=== PATIENT | male | born 1975 | race Caucasian/White ===

== ENCOUNTER 2016-07-22 08:47 | Emergency (ER) | payer OTHER ==
[2016-07-22 08:54] VITALS: O2SAT 97
--- NOTE | 2016-07-22 09:12 | ERPHSYRPT ---
- History of Present Illness Source: patient Exam Limitations: clinical condition Patient Subjective Stated Complaint: PT STATES "I THINK I'M IN AFIB" STATES HE HAS BEEN. FEELING LIKE HE IS SOB AND "FEELING LIKE" HES IN AFIB X 2. 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 PT DENIES CHEST PAIN BUT STATES " ITS JUST UNCOMFORTABLE" Triage Nursing Assessment: PT ALERT WARM AND DRY RESP EASY NON LABORED. PT NS RYTHM ON THE MONITOR AT A RATE OF 80 Physician History: Patient with 2 day history of what he thinks is intermittent atrial fibrillation with intermittent palpitations which he has had a history of over the past several years off and on prescribing on no medications. He also has been somewhat short of breath last couple days with no cough congestion and wheezing productive cough. Patient has seen Dr. Crespo/ Luis over the years off and on. No history of pulmonary was more DVT. No fever or chills. Had to leave work yesterday because of his shortness of breath. No chest pain associated with this. No history of hypertension and does not know of any inherent cardiac disease.Pt is not SOB now,thinks he converted just before coming into ER. Timing/Duration: day(s) (2) Activities at Onset: other (intermittent as noted above) Location: other (None) Chest Pain Radiation: no radiation Severity of Pain-Max: none Severity of Pain-Current: none Modifying Factors: Improves With: other (patient did take 325 aspirin today although he say this helps him relax and helps to treat his atrial fibril) Aspirin Treatment Today: 325 mg x 1, provided at home Associated Symptoms: shortness of breath, malaise, No vomiting, No abdominal pain, No heartburn, No diaphoresis, No cough, No chills, No chest pain, No fever , No headaches, No loss of appetite, No rash, No syncope, No seizure, No weakness Prior Chest Pain/Cardiac Workup: no prior chest pain Allergies/Adverse Reactions: No Known Drug Allergies Allergy (Unverified 12/26/14 14:30) Home Medications: No Reportable Medications [No Reported Medications] 12/26/14 [History] Hx Tetanus, Diphtheria Vaccination/Date Given: Yes Hx Influenza Vaccination/Date Given: No Hx Pneumococcal Vaccination/Date Given: No Immunizations Up to Date: Yes - Review of Systems Constitutional: Malaise (associated with shortness of breath) Eyes: No Symptoms Ears, Nose, & Throat: No Symptoms Respiratory: Dyspnea, Dyspnea on Exertion (SCHMITT) Cardiac: Palpitations Abdominal/Gastrointestinal: No Symptoms Genitourinary Symptoms: No Symptoms Musculoskeletal: No Symptoms Skin: No Symptoms - Past Medical History Pertinent Past Medical History: Yes Neurological History: No Pertinent History ENT History: No Pertinent History Cardiac History: Arrhythmia, Other Respiratory History: Sleep Apnea Endocrine Medical History: No Pertinent History Musculoskeletal History: No Pertinent History GI Medical History: No Pertinent History History: No Pertinent History Psycho-Social History: No Pertinent History Male Reproductive Disorders: No Pertinent History Other Medical History: AFIB - Past Surgical History Past Surgical History: Yes Neuro Surgical History: No Pertinent History Cardiac: No Pertinent History Respiratory: No Pertinent History Gastrointestinal: Appendectomy Genitourinary: No Pertinent History Musculoskeletal: No Pertinent History Male Surgical History: No Pertinent History Other Surgical History: APPY - Social History Smoking Status: Current every day smoker How long have you smoked: 30 YEARS Exposure to second hand smoke: Yes Drug Use: none Patient Lives Alone: No - Nursing Vital Signs Temperature: 97.5 F Temperature Source: Oral Pulse Rate: 81 Respiratory Rate: 18 Pain Intensity: 1 - Physical Exam General Appearance: mild distress, alert, anxiety Eye Exam: PERRL/EOMI Ears, Nose, Throat Exam: normal ENT inspection Neck Exam: normal inspection, non-tender, supple, full range of motion Respiratory Exam: normal breath sounds, lungs clear, airway intact, No respiratory distress, No diminished breath sounds, No accessory muscle use, No prolonged expirations, No crackles/rales, No rhonchi, No wheezing, No stridor Cardiovascular Exam: regular rate/rhythm, normal heart sounds, normal peripheral pulses, capillary refill <2 sec Gastrointestinal/Abdomen Exam: soft, normal bowel sounds, No tenderness, No distention, No mass, No guarding, No ecchymosis, No pulsatile mass, No rebound, No hernia, No hepatomegaly, No organomegaly Rectal Exam: deferred Back Exam: normal inspection, normal range of motion, CVA tenderness Extremity Exam: normal inspection, normal range of motion, No calf tenderness, No deformities, No clint's sign, No inflammation, No joint swelling, No pedal edema, No swelling, No tenderness Neurologic Exam: alert, oriented x 3, 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, 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 Skin Exam: normal color, warm, dry Lymphatic Exam: No adenopathy SpO2 Interpretation: normal SpO2: 97 Oxygen Delivery: Room Air - Course Nursing assessment & vital signs reviewed: Yes EKG Interpreted by Me: RATE (77), Sinus Rhythm, Left [place] Deviation, NORMAL INTERVALS, NORMAL QRS, Non-specific ST Changes (II,III,aVL/F,V456 ), Other (NO COMPARISON AVAILABLE) - Radiology Exams Chest X-ray Interpretation: Reviewed by me, Discussed w/ radiologist, Negative Ordered Tests: Active Orders 24 hr Category Date Time Status Cota STAT Care 07/22/16 09:04 Active EKG-ER Only STAT Care 07/22/16 09:04 Active IV Insertion STAT Care 07/22/16 09:04 Active Pulse Oximetry (ED) STAT Care 07/22/16 09:04 Active CHEST 1 VIEW (PORTABLE) Stat Exams 07/22/16 09:05 Completed ARTERIAL BLOOD GASES Urgent Lab 07/22/16 09:46 Completed CBC W DIFF Stat Lab 07/22/16 09:00 Completed CMP Stat Lab 07/22/16 09:00 Completed D-DIMER QUANTITATION Stat Lab 07/22/16 09:30 Completed MAGNESIUM Stat Lab 07/22/16 09:00 Completed NT PRO BNP Stat Lab 07/22/16 09:00 Completed PROTIME WITH INR Stat Lab 07/22/16 09:00 Completed PTT Stat Lab 07/22/16 09:00 Completed TROPONIN Q3H Lab 07/22/16 09:00 Completed TROPONIN Q3H Lab 07/22/16 12:15 Ordered TROPONIN Q3H Lab 07/22/16 15:15 Ordered TROPONIN Q3H Lab 07/22/16 18:15 Ordered TROPONIN Q3H Lab 07/22/16 21:15 Ordered Lab/Rad Data: Laboratory Result Diagrams 07/22/16 09:00 07/22/16 09:00 Laboratory Results 07/22/16 07/22/16 07/22/16 Range/Units 09:46 09:30 09:00 WBC (4.0-10.5) K/mm3 RBC (4.1-5.6) M/mm3 Hgb (12.5-18.0) gm/dl Hct (42-50) % MCV (78-100) fl MCH (26-32) pg MCHC (32-36) g/dl RDW (11.5-14.0) % Plt Count (150-450) K/mm3 MPV (6-9.5) fl Gran % (36.0-66.0) % Lymphocytes % (24.0-44.0) % Monocytes % (0.0-12.0) % Eosinophils % (0.00-5.0) % Basophils % (0.0-0.4) % Basophils # (0-0.4) INR (0.8-3.0) PTT (24.1-36.1) SECONDS D-Dimer 0.291 (0.00-0.49) mg/L Puncture Site RIGHT RADIAL pCO2 43 (35-45) mmHg pO2 68 L (75-100) mmHg Base Excess 1.4 (-2.0-2.0) O2 Saturation 89.4 L (94-100) g/dF ABG pH 7.40 (7.35-7.45) ABG HCO3 26.6 (22-28) ABG O2 Sat (Measured) 96.6 (95-100) % Nathanael Test YES A-a Gradient 28 a/A Ratio 0.71 Hemoglobin 15.6 Carboxyhemoglobin 6.6 (0.0-6.9) % THgb Methemoglobin 1.0 L (1.4-1.5) % Temperature 37.0 C POC O2 Flow Rate 21 % Sodium (136-145) mEq/L Potassium 3.5 (3.5-5.1) mEq/L Chloride (98-107) mEq/L Carbon Dioxide (21-32) mEq/L Anion Gap (5-15) MEQ/L BUN (9-20) mg/dL Creatinine (0.55-1.30) mg/dl Estimated GFR ML/MIN Glucose (70-110) MG/DL Calcium (8.5-10.1) mg/dL Magnesium (1.8-2.4) mg/dL Total Bilirubin (0.2-1.0) mg/dL AST (15-37) U/L ALT (12-78) U/L Alkaline Phosphatase (46-116) U/L Troponin I < 0.017 (0.000-0.056) ng/ml NT-Pro-B Natriuret Pep (0-125) pg/ml Serum Total Protein (6.4-8.2) gm/dL Albumin (3.4-5.0) g/dL 07/22/16 07/22/16 07/22/16 Range/Units 09:00 09:00 09:00 WBC 4.4 (4.0-10.5) K/mm3 RBC 5.37 (4.1-5.6) M/mm3 Hgb 15.9 (12.5-18.0) gm/dl Hct 48.0 (42-50) % MCV 89.4 (78-100) fl MCH 29.6 (26-32) pg MCHC 33.1 (32-36) g/dl RDW 13.4 (11.5-14.0) % Plt Count 121 L (150-450) K/mm3 MPV 11.5 H (6-9.5) fl Gran % 49.7 (36.0-66.0) % Lymphocytes % 31.7 (24.0-44.0) % Monocytes % 15.4 H (0.0-12.0) % Eosinophils % 2.7 (0.00-5.0) % Basophils % 0.5 (0.0-0.4) % Basophils # 0.02 (0-0.4) INR 1.08 (0.8-3.0) PTT 40.2 H (24.1-36.1) SECONDS D-Dimer (0.00-0.49) mg/L Puncture Site pCO2 (35-45) mmHg pO2 (75-100) mmHg Base Excess (-2.0-2.0) O2 Saturation (94-100) g/dF ABG pH (7.35-7.45) ABG HCO3 (22-28) ABG O2 Sat (Measured) (95-100) % Nathanael Test A-a Gradient a/A Ratio Hemoglobin Carboxyhemoglobin (0.0-6.9) % THgb Methemoglobin (1.4-1.5) % Temperature C POC O2 Flow Rate % Sodium 144 (136-145) mEq/L Potassium 3.7 (3.5-5.1) mEq/L Chloride 107 (98-107) mEq/L Carbon Dioxide 27.4 (21-32) mEq/L Anion Gap 12.8 (5-15) MEQ/L BUN 13 (9-20) mg/dL Creatinine 1.05 (0.55-1.30) mg/dl Estimated GFR > 60 ML/MIN Glucose 94 (70-110) MG/DL Calcium 8.6 (8.5-10.1) mg/dL Magnesium 1.9 (1.8-2.4) mg/dL Total Bilirubin 0.6 (0.2-1.0) mg/dL AST 23 (15-37) U/L ALT 24 (12-78) U/L Alkaline Phosphatase 114 (46-116) U/L Troponin I (0.000-0.056) ng/ml NT-Pro-B Natriuret Pep < 5.0 (0-125) pg/ml Serum Total Protein 7.4 (6.4-8.2) gm/dL Albumin 3.6 (3.4-5.0) g/dL - Progress Progress: improved Air Movement: good Progress Note: 07/22/16 10:29Noted decreased O2 hemoglobin sat compared to O2 sat and PO2 of only 68. Patient works at [employer] next to [employer], had headache and generalized malaise yesterday which could be socially, monoxide poisoning as his carboxy was slightly elevated at 6.6 normal for smoker only at the 5.1 and he only smokes a half a pack a day. Case was discussed at length with he will recheck him tomorrow and patient will obtain carbon monoxide monitors and had them checked at work. See discharge diagnosis and instructions. Remainder of workup was noncontributory. Blood Culture(s) Obtained: No Antibiotics given: No Discussed with : Bryce Will see patient in: office (APPOINTMENT MADE 11:15 TOMORROW AT [facility]) - Departure Time of Disposition: 10:31 Departure Disposition: Home Clinical Impression: History of palpitations, History of atrial fibrillation, Accidental poisoning by carbon monoxide from other sources, Malaise Carbon monoxide poisoning syndrome Qualifiers: Encounter type: initial encounter Injury intent: accidental or unintentional Qualified Code(s): T58.91XA - Toxic effect of carbon monoxide from unspecified source, accidental (unintentional), initial encounter Condition: Stable Critical Care Time: No Referrals: MATT DAVIS MD [Primary Care Provider] - Instructions: Carbon Monoxide Poisoning, Shortness of Breath, Arrhythmias Additional Instructions: Rest with no strenuous activity next 48 hours. Check home and arrange for check of carbon monoxide levels at work. Please try to use her CPAP for sleep apnea. Follow-up tomorrow morning at 11:[address] Smith at [facility]. Please return to the emergency room for a significant concerns or issues such as continued palpitations shortness of breath chest pain etc.
--- NOTE | 2016-07-22 09:25 | XRAY ---
Indication: Chest pressure and short of breath. Atrial fibrillation. Comparison: None Portable apical lordotic chest demonstrates normal heart and lungs. Bony thorax intact with minimal degenerative changes.
[2016-07-22 09:29] LABS: BASOPHIL % 0.5 % (0.0-0.4); Eosinophil % 2.7 % (0.00-5.0); Granulocytes % 49.7 % (36.0-66.0); Lymphocytes % 31.7 % (24.0-44.0); Mean Cell Volume 89.4 fl (78-100); Mean Corpuscular Hemoglobin 29.6 pg (26-32); Mean Platelet Volume 11.5 fl (6-9.5); Monocytes % 15.4 % (0.0-12.0); Platelet Count 121 K/mm3 (150-450); Red Blood Count 5.37 M/mm3 (4.1-5.6); Red Cell Distribution Width 13.4 % (11.5-14.0); White Blood Count 4.4 K/mm3 (4.0-10.5)
[2016-07-22 09:49] LABS: INR 1.08 (0.8-3.0); PROTIME 12.1 SECONDS (8.83-12.87)
[2016-07-22 09:52] LABS: PTT 40.2 SECONDS (24.1-36.1)
[2016-07-22 09:56] LABS: ALBUMIN 3.6 g/dL (3.4-5.0); ALKALINE PHOSPHATASE 114 U/L (46-116); ANION GAP 12.8 MEQ/L (5-15); BILIRUBIN,TOTAL 0.6 mg/dL (0.2-1.0); BLOOD UREA NITROGEN 13 mg/dL (9-20); CHLORIDE 107 mEq/L (98-107); Carbon Dioxide 27.4 mEq/L (21-32); Glucose 94 MG/DL (70-110); MAGNESIUM 1.9 mg/dL (1.8-2.4); Potassium 3.7 mEq/L (3.5-5.1); SGOT/AST 23 U/L (15-37); SGPT/ALT 24 U/L (12-78); SODIUM 144 mEq/L (136-145); Total Protein 7.4 gm/dL (6.4-8.2)
[2016-07-22 09:56] LABS: A-aADO2 28; ARTERIAL BLD GAS O2 SATURATION 96.6 % (95-100); ARTERIAL BLOOD GAS BASE EXCESS 1.4 (-2.0-2.0); ARTERIAL BLOOD GAS FIO2 21 %; ARTERIAL BLOOD GAS PO2 68 mmHg (75-100)
[2016-07-22 09:57] LABS: ALLEN TEST OK? YES
[2016-07-22 10:28] VITALS: PULSE 81
[2016-07-22 11:17] VITALS: BP 129/70
== END 2016-07-22 11:17 | disposition home or self-care (01) ==
LOC: ED 08:47
DX: T58.91XA Toxic effect of carbon monoxide from unspecified source, accidental (unintentional), initial encounter (principal); R06.02 Shortness of breath; R00.2 Palpitations
CPT/HCPCS: 36000; 36415; 36600; 71010; 80053; 82375; 82803; 83735; 83880; 84484; 85025; 85379; 85610; 85730; 93005; 93041; 99283; 99284

== ENCOUNTER 2016-11-30 19:44 | Emergency (ER) | payer OTHER ==
[2016-11-30] MEDS ORDERED: TYLENOL 325 MG PO STA (19:58)
[2016-11-30] MEDS ORDERED: Sodium Chloride 0.9% 1000 ML 1,000 ML IV STA (20:09)
[2016-11-30] MEDS ORDERED: ROCEPHIN 2 Gm-D5w 50ML BAG** 2 G/50 ML IVPB IV ONE ×2 (20:11→20:23)
[2016-11-30] MEDS ORDERED: Sodium Chloride 0.9% 1000 ML 1,000 ML ONE (20:23)
[2016-11-30] MEDS ORDERED: TYLENOL 325 MG ONE (20:23)
[2016-11-30 20:38] LABS: BASOPHIL % 0.2 % (0.0-0.4); Eosinophil % 1.1 % (0.00-5.0); Granulocytes % 82.4 % (36.0-66.0); Lymphocytes % 10.6 % (24.0-44.0); Mean Corpuscular Hemoglobin 29.6 pg (26-32); Mean Platelet Volume 11.7 fl (6-9.5); Monocytes % 5.7 % (0.0-12.0); Platelet Count 135 K/mm3 (150-450); Red Blood Count 5.21 M/mm3 (4.1-5.6); Red Cell Distribution Width 13.2 % (11.5-14.0); White Blood Count 13.4 K/mm3 (4.0-10.5)
[2016-11-30 21:47] VITALS: PULSE 82
[2016-11-30] MEDS ORDERED: MOTRIN 600 MG PO ONE (21:47)
[2016-11-30] MEDS ORDERED: MOTRIN 400 MG PO ONE (21:53)
[2016-11-30] MEDS ORDERED: MOTRIN 400 MG ONE (21:55)
--- NOTE | 2016-11-30 21:57 | ERPHSYRPT ---
- History of Present Illness Time Seen by Provider: 11/30/16 19:55 Source: patient Exam Limitations: clinical condition Patient Subjective Stated Complaint: Pt sts since 1600 has had body aches, and sinus problems. Sts unsure if he has had fever but has been shaking and feels like he is "freezing". Sts took dayquil at 1600. Triage Nursing Assessment: Pt alert, oriented, answers all questions appropriately. Skin hot to touch, dry, flushed. Resps non-labored. SPO2 99% room air. Physician History: PATIENT COMPLAINS OF FEVER, CHILLS, GENERALIZED ACHES, SINUS PRESSURE AND A NONPRODUCTIVE COUGH TODAY. DENIES NAUSEA, EMESIS OR DIFFICULTY BREATHING. Timing/Duration: today Fever Severity: moderate Fever Therapy [place] MATE: none Associated Symptoms: cough, muscle aches International travel in last 2 weeks: No Allergies/Adverse Reactions: No Known Drug Allergies Allergy (Verified 11/30/16 20:01) Hx Tetanus, Diphtheria Vaccination/Date Given: Yes Hx Influenza Vaccination/Date Given: No Hx Pneumococcal Vaccination/Date Given: No Immunizations Up to Date: No - Review of Systems Constitutional: Fever, Chills Eyes: No Symptoms Ears, Nose, & Throat: No Symptoms Respiratory: Cough Neurological: No Dizziness, No Focal Weakness, No Sensory Changes - Past Medical History Pertinent Past Medical History: Yes Neurological History: No Pertinent History ENT History: No Pertinent History Cardiac History: Arrhythmia, Other Respiratory History: Sleep Apnea Endocrine Medical History: No Pertinent History Musculoskeletal History: No Pertinent History GI Medical History: No Pertinent History History: No Pertinent History Psycho-Social History: No Pertinent History Male Reproductive Disorders: No Pertinent History Other Medical History: AFIB - Past Surgical History Past Surgical History: Yes Neuro Surgical History: No Pertinent History Cardiac: No Pertinent History Respiratory: No Pertinent History Gastrointestinal: Appendectomy Genitourinary: No Pertinent History Musculoskeletal: No Pertinent History Male Surgical History: No Pertinent History Other Surgical History: APPY - Social History Smoking Status: Current every day smoker How long have you smoked: 30 years Exposure to second hand smoke: No Drug Use: none Patient Lives Alone: No - Nursing Vital Signs Nursing Vital Signs: Initial Vital Signs Temperature 102.2 F Temperature Source Oral Pulse Rate 82 Respiratory Rate 18 Blood Pressure [Right Arm] 120/58 - Physical Exam General Appearance: no apparent distress, alert Eye Exam: PERRL/EOMI ENT Exam: normal ENT inspection, No pharyngeal erythema, No tonsillar exudate Neck Exam: supple, full range of motion, No meningismus Respiratory Exam: normal breath sounds, lungs clear, no respiratory distress Cardiovascular/Chest Exam: normal heart sounds, regular rate/rhythm, No murmur, No edema Gastrointestinal/Abdominal Exam: soft, non tender, no distention Extremity Exam: non-tender, normal range of motion, normal inspection, normal capillary refill Neurologic Exam: alert, oriented x 3, cooperative, 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, normal mood/affect, sensation nml, No motor deficits Skin Exam: normal color, warm, dry, No rash SpO2 Interpretation: normal SpO2: 96 Oxygen Delivery: Room Air - Radiology Exams Chest X-ray Interpretation: Interpreted by me (LEFT BASILAR INFILTRATE) Ordered Tests: Active Orders 24 hr Category Date Time Status IV Insertion STAT Care 11/30/16 20:09 Active CHEST 2 VIEWS (PA AND LAT) Stat Exams 11/30/16 20:10 Taken BLOOD CULTURE Stat Lab 11/30/16 20:30 Received CBC W DIFF Stat Lab 11/30/16 20:25 Completed CULTURE, THROAT Stat Lab 11/30/16 20:00 Received [place] Screen Stat Lab 11/30/16 20:25 Completed STREP SCREEN-BETA A Stat Lab 11/30/16 20:00 Completed Medication Summary Discontinued Medications Generic Name Dose Route Start Last Admin Trade Name Freq PRN Reason Stop Dose Admin Acetaminophen 975 mg 11/30/16 19:58 11/30/16 20:24 Tylenol 325 Mg PO 11/30/16 19:59 975 mg STAT STA Administration Acetaminophen Confirm 11/30/16 20:23 Tylenol 325 Mg Administered 11/30/16 20:24 Dose 975 mg .ROUTE .STK-MED ONE Ceftriaxone Sodium/Dextrose 2 g in 50 mls @ 100 mls/hr 11/30/16 20:11 20:24 Rocephin 2 Gm-D5w 50ml Bag IV 11/30/16 20:40 100 mls/hr STAT ONE Administration Sodium Chloride 1,000 mls @ 999 mls/hr 11/30/16 20:09 11/30/16 20:25 Sodium Chloride 0.9% 1000 Ml IV 11/30/16 21:09 999 mls/hr .Q1H1M STA Administration Sodium Chloride Confirm 11/30/16 20:23 Sodium Chloride 0.9% 1000 Ml Administered 11/30/16 20:24 Dose 1,000 mls @ ud .ROUTE .STK-MED ONE Ceftriaxone Sodium/Dextrose Confirm 11/30/16 20:23 Rocephin 2 Gm-D5w 50ml Bag Administered 11/30/16 20:24 Dose 2 g in 50 mls @ ud IV .STK-MED ONE Ibuprofen 800 mg 11/30/16 21:47 Motrin 600 Mg PO 11/30/16 21:48 STAT ONE Lab/Rad Data: Laboratory Result Diagrams 11/30/16 20:25 Laboratory Results 11/30/16 11/30/16 11/30/16 Range/Units 20:25 20:25 20:00 WBC 13.4 H (4.0-10.5) K/mm3 RBC 5.21 (4.1-5.6) M/mm3 Hgb 15.4 (12.5-18.0) gm/dl Hct 46.9 (42-50) % MCV 90.0 (78-100) fl MCH 29.6 (26-32) pg MCHC 32.8 (32-36) g/dl RDW 13.2 (11.5-14.0) % Plt Count 135 L (150-450) K/mm3 MPV 11.7 H (6-9.5) fl Gran % 82.4 H (36.0-66.0) % Lymphocytes % 10.6 L (24.0-44.0) % Monocytes % 5.7 (0.0-12.0) % Eosinophils % 1.1 (0.00-5.0) % Basophils % 0.2 (0.0-0.4) % Basophils # 0.03 (0-0.4) Monoscreen NEGATIVE (Negative) Influenza Type A Ag NEGATIVE (NEGATIVE) Influenza Type B Ag NEGATIVE (NEGATIVE) RSV (PCR) NEGATIVE (Negative) Streptococcus Screen (Negative) 11/30/16 Range/Units 20:00 WBC (4.0-10.5) K/mm3 RBC (4.1-5.6) M/mm3 Hgb (12.5-18.0) gm/dl Hct (42-50) % MCV (78-100) fl MCH (26-32) pg MCHC (32-36) g/dl RDW (11.5-14.0) % Plt Count (150-450) K/mm3 MPV (6-9.5) fl Gran % (36.0-66.0) % Lymphocytes % (24.0-44.0) % Monocytes % (0.0-12.0) % Eosinophils % (0.00-5.0) % Basophils % (0.0-0.4) % Basophils # (0-0.4) Monoscreen (Negative) Influenza Type A Ag (NEGATIVE) Influenza Type B Ag (NEGATIVE) RSV (PCR) (Negative) Streptococcus Screen NEGATIVE (Negative) - Progress Progress Note: 11/30/16 21:53 PATIENT GIVEN IV NORMAL SALINE 1 LITER OVER 1 HOUR, ROCEPHIN 2GM IVPB, TYLENOL 975MG ORALLY Counseled pt/family regarding: lab results, diagnosis, need for follow-up, rad results - Departure Time of Disposition: 22:10 Departure Disposition: Home Clinical Impression: ACUTE BRONCHITIS Condition: Stable Critical Care Time: No Instructions: Fever (Symptom) -- Adult Additional Instructions: ANTIBIOTIC AUGMENTIN 875MG TWICE DAILY FOR 10 DAYS. ROBITUSSIN AC 1-2 TEASPOONS EVERY 4-6 HOURS FOR COUGHING NEEDED. TYLENOL OR MOTIRN NEEDED FOR FEVER. FOLLOWUP WITH YOUR FAMILY PHYSICIAN FOR EVALUATION IN 1 WEEK. Prescriptions: Guaifenesin/Codeine Phosphate [Robitussin AC Syrup] 5 ml PO Q4H PRN PRN #118 ml PRN Reason: Cough Amox Tr/[place]ass Clav. 875 mg [Augmentin 875-125 Tablet] 875 mg PO BID #20 tablet
[2016-11-30 22:22] VITALS: BP 124/68; O2SAT 98
--- NOTE | 2016-12-01 09:18 | XRAY ---
Indication: Nonproductive cough, fever, and flulike symptoms. Comparison: July 22, 2016. PA/lateral chest again demonstrates normal heart and lungs. Bony thorax intact.
== END 2016-11-30 22:20 | disposition home or self-care (01) ==
LOC: ED 19:44
DX: J20.9 Acute bronchitis, unspecified (principal); R50.9 Fever, unspecified; R05 Cough
CPT/HCPCS: 36000; 36415; 71020; 85025; 86308; 87040; 87070; 87430; 87631; 96360; 96361; 96365; 99284; J0696; A9270-GY

== ENCOUNTER 2018-05-31 08:44 | Emergency (ER) | payer OTHER ==
--- NOTE | 2018-05-31 09:14 | ERPHSYRPT ---
- History of Present Illness Time Seen by Provider: 05/31/18 09:00 Historian: patient Exam Limitations: no limitations Patient Subjective Stated Complaint: PT states "I have not been feeling well for the past few days and this morning I have belly pain, nausea, vomiting, I just feel horrible. I am not sure if it is something I ate or not." Triage Nursing Assessment: Pt alert and oriented X 3, skin pwd. Pt moaning and holding his abdomen. Pt in no apparent respiratory distress. Physician History: 42 y/o white male, with no hx of abd surgeries, presents with generalized, cramping abd pain first followed by n/v. sx began this am. no diarrhea. pt states he did eat afghan food last pm approx 13 to14 hours ago. never had before. pt has not generally fell well in last fiew days. pt denies cp and soa. Timing/Duration: today, sudden, worse Quality: cramping Abdominal Pain Onset Location: generalized abdomen Pain Radiation: no radiation Severity of Pain-Max: moderate Severity of Pain-Current: moderate Modifying Factors: Improves With: vomiting Associated Symptoms: nausea, vomiting, No chest pain, No diaphoresis, No diarrhea, No fever/chills, No fatigue, No headache, No heartburn, No loss of appetite, No rash, No shortness of breath, No syncope, No testicular pain, No weakness Previous symptoms: no prior history Allergies/Adverse Reactions: No Known Drug Allergies Allergy (Verified 11/30/16 20:01) Hx Tetanus, Diphtheria Vaccination/Date Given: Yes Hx Influenza Vaccination/Date Given: No Hx Pneumococcal Vaccination/Date Given: No Immunizations Up to Date: Yes - Review of Systems Constitutional: No Symptoms Eyes: No Symptoms Ears, Nose, & Throat: No Symptoms Respiratory: No Symptoms, No Cough, No Dyspnea, No Stridor, No Wheezing Cardiac: No Symptoms, No Chest Pain, No Palpitations, No Syncope Abdominal/Gastrointestinal: Abdominal Pain, Nausea, Vomiting, Appetite Changes, No Diarrhea Genitourinary Symptoms: No Symptoms, No Dysuria, No Frequency, No Hematuria Musculoskeletal: No Symptoms Skin: No Symptoms Neurological: No Symptoms Psychological: No Symptoms Endocrine: No Symptoms Hematologic/Lymphatic: No Symptoms Immunological/Allergic: No Symptoms All Other Systems: Reviewed and Negative - Past Medical History Pertinent Past Medical History: Yes Neurological History: No Pertinent History ENT History: No Pertinent History Cardiac History: Arrhythmia, Other Respiratory History: Sleep Apnea Endocrine Medical History: No Pertinent History Musculoskeletal History: No Pertinent History GI Medical History: No Pertinent History History: No Pertinent History Psycho-Social History: No Pertinent History Male Reproductive Disorders: No Pertinent History Other Medical History: AFIB - Past Surgical History Past Surgical History: Yes Neuro Surgical History: No Pertinent History Cardiac: No Pertinent History Respiratory: No Pertinent History Gastrointestinal: Appendectomy Genitourinary: No Pertinent History Musculoskeletal: No Pertinent History Male Surgical History: No Pertinent History Other Surgical History: APPY - Social History Smoking Status: Current every day smoker How long have you smoked: years Exposure to second hand smoke: Yes Drug Use: none Patient Lives Alone: No - Nursing Vital Signs Nursing Vital Signs: Initial Vital Signs Temperature 97.7 F 05/31/18 08:50 Pulse Rate 89 05/31/18 08:50 Respiratory Rate 16 05/31/18 08:50 Blood Pressure 136/91 05/31/18 08:50 O2 Sat by Pulse Oximetry 98 05/31/18 08:50 Pain Scale Pain Intensity 4 - Physical Exam General Appearance: mild distress, alert, anxiety Eye Exam: PERRL/EOMI, eyes nml inspection Ears, Nose, Throat Exam: normal ENT inspection Neck Exam: normal inspection, non-tender, supple, full range of motion Respiratory Exam: normal breath sounds, lungs clear, airway intact, No chest tenderness, No respiratory distress, No accessory muscle use, No rhonchi, No wheezing, No stridor Cardiovascular Exam: regular rate/rhythm, normal heart sounds, normal peripheral pulses Gastrointestinal/Abdomen Exam: soft, normal bowel sounds, tenderness (crampy generalized), No guarding, No rebound Rectal Exam: not done Back Exam: normal inspection, normal range of motion, No CVA tenderness, No vertebral tenderness Extremity Exam: normal inspection, normal range of motion, pelvis stable Neurologic Exam: alert, oriented x 3, cooperative, dashboard developer II-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 nml as tested Skin Exam: normal color, warm, dry Lymphatic Exam: No adenopathy SpO2 Interpretation: normal SpO2: 98 Oxygen Delivery: Room Air Ordered Tests: Active Orders 24 hr Category Date Time Status Clean Catch Urine Specimen STAT Care 05/31/18 09:15 Active IV Insertion STAT Care 05/31/18 09:15 Active NPO (ED) STAT Care 05/31/18 09:15 Active AMYLASE Stat Lab 05/31/18 09:29 Completed CBC W DIFF Stat Lab 05/31/18 09:29 Completed CMP Stat Lab 05/31/18 09:29 Completed LIPASE Stat Lab 05/31/18 09:29 Completed Lactic Acid Stat Lab 05/31/18 09:25 Completed UA W/RFX UR CULTURE Stat Lab 05/31/18 10:49 Completed Medication Summary Generic Name Dose Route Start Last Admin Trade Name Freq PRN Reason Stop Dose Admin Sodium Chloride 1,000 mls @ 999 mls/hr 05/31/18 11:01 05/31/18 11:06 Sodium Chloride 0.9% 1000 Ml IV 05/31/18 12:01 999 mls/hr .Q1H1M STA Administration Discontinued Medications Generic Name Dose Route Start Last Admin Trade Name Freq PRN Reason Stop Dose Admin Famotidine 20 mg 05/31/18 09:15 05/31/18 09:40 Pepcid 20 Mg Vial IV 05/31/18 09:16 20 mg STAT ONE Administration Famotidine Confirm 05/31/18 09:35 Pepcid 20 Mg Vial Administered 05/31/18 09:36 Dose 20 mg IV .STK-MED ONE Hydromorphone HCl 1 mg 05/31/18 09:15 05/31/18 09:40 Hydromorphone 1 Mg/Ml Ampule IV 05/31/18 09:16 1 mg STAT ONE Administration Hydromorphone HCl Confirm 05/31/18 09:35 Hydromorphone 1 Mg/Ml Ampule Administered 05/31/18 09:36 Dose 1 mg .ROUTE .STK-MED ONE Sodium Chloride 1,000 mls @ 999 mls/hr 05/31/18 09:15 05/31/18 09:40 Sodium Chloride 0.9% 1000 Ml IV 05/31/18 10:15 999 mls/hr .Q1H1M STA Administration Sodium Chloride Confirm 05/31/18 09:35 Sodium Chloride 0.9% 1000 Ml Administered 05/31/18 09:36 Dose 1,000 mls @ ud .ROUTE .STK-MED ONE Sodium Chloride Confirm 05/31/18 11:05 Sodium Chloride 0.9% 1000 Ml Administered 05/31/18 11:06 Dose 1,000 mls @ ud .ROUTE .STK-MED ONE Ondansetron HCl 4 mg 05/31/18 09:15 05/31/18 09:41 Zofran 4 Mg/2 Ml Vial IV 05/31/18 09:16 4 mg STAT ONE Administration Ondansetron HCl Confirm 05/31/18 09:35 Zofran 4 Mg/2 Ml Vial Administered 05/31/18 09:36 Dose 4 mg .ROUTE .STK-[facility] ONE Lab/Rad Data: Laboratory Result Diagrams 05/31/18 09:29 05/31/18 09:29 Laboratory Results 05/31/18 05/31/18 05/31/18 Range/Units 10:49 09:29 09:29 WBC 9.4 (4.0-10.5) K/mm3 RBC 5.79 H (4.1-5.6) M/mm3 Hgb 17.0 (12.5-18.0) gm/dl Hct 52.4 H (42-50) % MCV 90.5 (78-100) fl MCH 29.3 (26-32) pg MCHC 32.4 (32-36) g/dl RDW 13.6 (11.5-14.0) % Plt Count 140 L (150-450) K/mm3 MPV 11.9 H (6-9.5) fl Gran % 85.6 H (36.0-66.0) % Eos # (Auto) 0.10 (0-0.5) Absolute Lymphs (auto) 0.79 L (1.0-4.6) Absolute Monos (auto) 0.45 (0.0-1.3) Lymphocytes % 8.4 L (24.0-44.0) % Monocytes % 4.8 (0.0-12.0) % Eosinophils % 1.1 (0.00-5.0) % Basophils % 0.1 (0.0-0.4) % Absolute Granulocytes 8.04 H (1.4-6.9) Basophils # 0.01 (0-0.4) Sodium 145 (137-145) mmol/L Potassium 4.8 (3.5-5.1) mmol/L Chloride 106 (98-107) mmol/L Carbon Dioxide 29 (22-30) mmol/L Anion Gap 14.7 (5-15) MEQ/L BUN 18 (9-20) mg/dL Creatinine 0.97 (0.66-1.25) mg/dL Estimated GFR > 60.0 ML/MIN Glucose 110 H (74-106) mg/dL Lactic Acid (0.4-2.0) Calcium 9.4 (8.4-10.2) mg/dL Total Bilirubin 0.80 (0.2-1.3) mg/dL AST 27 (17-59) U/L ALT 32 (0-50) U/L Alkaline Phosphatase 114 (38-126) U/L Serum Total Protein 8.1 (6.3-8.2) g/dL Albumin 4.5 (3.5-5.0) g/dL Amylase 66 (30-110) U/L Lipase 78 (23-300) U/L Urine Color YELLOW (YELLOW) Urine Appearance CLEAR (CLEAR) Urine pH 5.0 (5-6) Ur Specific [place] 1.027 (1.005-1.025) Urine Protein NEGATIVE (Negative) Urine Ketones NEGATIVE (NEGATIVE) Urine Blood MODERATE (0-5) Jeronimo/ul Urine Nitrite NEGATIVE (NEGATIVE) Urine Bilirubin NEGATIVE (NEGATIVE) Urine Urobilinogen NEGATIVE (0-1) mg/dL Ur Leukocyte Esterase NEGATIVE (NEGATIVE) Urine WBC (Auto) NONE (0-5) /HPF Urine RBC (Auto) 0-2 (0-2) /HPF U Epithel Cells (Auto) RARE (FEW) /HPF Urine Bacteria (Auto) FEW (NEGATIVE) /HPF Other Casts (Auto) 2-5 (NEGATIVE) /LPF Urine Mucus (Auto) SLIGHT (NEGATIVE) /HPF Urine Culture Reflexed NO (NO) Urine Glucose NEGATIVE (NEGATIVE) mg/dL 05/31/18 Range/Units 09:25 WBC (4.0-10.5) K/mm3 RBC (4.1-5.6) M/mm3 Hgb (12.5-18.0) gm/dl Hct (42-50) % MCV (78-100) fl MCH (26-32) pg MCHC (32-36) g/dl RDW (11.5-14.0) % Plt Count (150-450) K/mm3 MPV (6-9.5) fl Gran % (36.0-66.0) % Eos # (Auto) (0-0.5) Absolute Lymphs (auto) (1.0-4.6) Absolute Monos (auto) (0.0-1.3) Lymphocytes % (24.0-44.0) % Monocytes % (0.0-12.0) % Eosinophils % (0.00-5.0) % Basophils % (0.0-0.4) % Absolute Granulocytes (1.4-6.9) Basophils # (0-0.4) Sodium (137-145) mmol/L Potassium (3.5-5.1) mmol/L Chloride (98-107) mmol/L Carbon Dioxide (22-30) mmol/L Anion Gap (5-15) MEQ/L BUN (9-20) mg/dL Creatinine (0.66-1.25) mg/dL Estimated GFR ML/MIN Glucose (74-106) mg/dL Lactic Acid 1.3 (0.4-2.0) Calcium (8.4-10.2) mg/dL Total Bilirubin (0.2-1.3) mg/dL AST (17-59) U/L ALT (0-50) U/L Alkaline Phosphatase (38-126) U/L Serum Total Protein (6.3-8.2) g/dL Albumin (3.5-5.0) g/dL Amylase (30-110) U/L Lipase (23-300) U/L Urine Color (YELLOW) Urine Appearance (CLEAR) Urine pH (5-6) Ur Specific [place] (1.005-1.025) Urine Protein (Negative) Urine Ketones (NEGATIVE) Urine Blood (0-5) Jeronimo/ul Urine Nitrite (NEGATIVE) Urine Bilirubin (NEGATIVE) Urine Urobilinogen (0-1) mg/dL Ur Leukocyte Esterase (NEGATIVE) Urine WBC (Auto) (0-5) /HPF Urine RBC (Auto) (0-2) /HPF U Epithel Cells (Auto) (FEW) /HPF Urine Bacteria (Auto) (NEGATIVE) /HPF Other Casts (Auto) (NEGATIVE) /LPF Urine Mucus (Auto) (NEGATIVE) /HPF Urine Culture Reflexed (NO) Urine Glucose (NEGATIVE) mg/dL - Progress Progress: improved, re-examined Progress Note: 05/31/18 11:25 pt states he is feeling better. pain and nausea improved but still a little nauseated. Counseled pt/family regarding: lab results, diagnosis, need for follow-up - Departure Time of Disposition: 11:25 Departure Disposition: Home Clinical Impression: Gastritis, Gastroenteritis Condition: Stable Critical Care Time: No Referrals: MATT DAVIS MD [Primary Care Provider] - Additional Instructions: drink plenty of fluids. avoid fatty, greasy spicy foods. follow up with primary doctor for further management Prescriptions: Ranitidine HCl [Zantac] 150 mg PO BID #10 tablet
[2018-05-31] MEDS ORDERED: Pepcid 20 MG VIAL IV ONE ×2 (09:15→09:35)
[2018-05-31] MEDS ORDERED: Zofran 4 MG/2 ML VIAL IV ONE (09:15)
[2018-05-31] MEDS ORDERED: Hydromorphone 1 mg/ml Ampule IV ONE (09:15)
[2018-05-31] MEDS ORDERED: Sodium Chloride 0.9% 1000 ML 1,000 ML IV STA ×2 (09:15→11:01)
[2018-05-31 09:35] LABS: BASOPHIL % 0.1 % (0.0-0.4); Basophil (Absolute #) 0.01 (0-0.4); Eosinophil % 1.1 % (0.00-5.0); Granulocyte Absolute (ANC) 8.04 (1.4-6.9); Granulocytes % 85.6 % (36.0-66.0); Hematocrit 52.4 % (42-50); Lymphocyte (Absolute #) 0.79 (1.0-4.6); Lymphocytes % 8.4 % (24.0-44.0); Mean Cell Volume 90.5 fl (78-100); Mean Corpuscular Hgb Concent. 32.4 g/dl (32-36); Mean Platelet Volume 11.9 fl (6-9.5); Monocyte (Absolute #) 0.45 (0.0-1.3); Monocytes % 4.8 % (0.0-12.0); Platelet Count 140 K/mm3 (150-450); Red Blood Count 5.79 M/mm3 (4.1-5.6); Red Cell Distribution Width 13.6 % (11.5-14.0); White Blood Count 9.4 K/mm3 (4.0-10.5)
[2018-05-31] MEDS ORDERED: Hydromorphone 1 mg/ml Ampule ONE (09:35)
[2018-05-31] MEDS ORDERED: Sodium Chloride 0.9% 1000 ML 1,000 ML ONE ×2 (09:35→11:05)
[2018-05-31] MEDS ORDERED: Zofran 4 MG/2 ML VIAL ONE (09:35)
[2018-05-31 09:36] LABS: Mean Corpuscular Hemoglobin 29.3 pg (26-32)
[2018-05-31 09:45] LABS: ALBUMIN 4.5 g/dL (3.5-5.0); ALKALINE PHOSPHATASE 114 U/L (38-126); AMYLASE 66 U/L (30-110); ANION GAP 14.7 MEQ/L (5-15); BLOOD UREA NITROGEN 18 mg/dL (9-20); CHLORIDE 106 mmol/L (98-107); Calcium 9.4 mg/dL (8.4-10.2); Carbon Dioxide 29 mmol/L (22-30); Creatinine 1 0.97 mg/dL (0.66-1.25); Glucose 110 mg/dL (74-106); LIPASE 78 U/L (23-300); Potassium 4.8 mmol/L (3.5-5.1); SGOT/AST 27 U/L (17-59); SGPT/ALT 32 U/L (0-50); SODIUM 145 mmol/L (137-145); Total Protein 8.1 g/dL (6.3-8.2)
[2018-05-31 11:05] LABS: Appearance CLEAR (CLEAR); Bilirubin NEGATIVE (NEGATIVE); Blood MODERATE Ery/ul (0-5); Glucose NEGATIVE (NEGATIVE); Ketones NEGATIVE (NEGATIVE); Leukocyte Esterase NEGATIVE (NEGATIVE); Nitrite NEGATIVE (NEGATIVE); Protein,Urine Dip NEGATIVE (Negative); Specific Gravity 1.027 (1.005-1.025); Urobilinogen NEGATIVE mg/dL (0-1)
[2018-05-31 11:29] VITALS: O2SAT 98
[2018-05-31 11:59] VITALS: BP 124/68; PULSE 68
== END 2018-05-31 12:12 | disposition home or self-care (01) ==
LOC: ED 08:44
DX: K29.70 Gastritis, unspecified, without bleeding (principal); K52.9 Noninfective gastroenteritis and colitis, unspecified
CPT/HCPCS: 36000; 36415; 80053; 81001; 82150; 83605; 83690; 85025; 96360; 96374; 96375; 99284; J1170; J2405

== ENCOUNTER 2020-11-18 12:59 | Observation (INO) | payer OTHER ==
[2020-11-18] MEDS ORDERED: TORAdol 30 mg Injection IV ONE (13:29)
[2020-11-18] MEDS ORDERED: BABY ASPIRIN 81 MG CHEW PO ONE (13:29)
[2020-11-18 13:40] LABS: Absolute Neutrophil Ct (ANC) 4.92 (1.4-6.9); BASOPHIL % 0.4 % (0.0-0.4); Basophil (Absolute #) 0.03 (0-0.4); Eosinophil % 1.6 % (0.00-5.0); Eosinophil (Absolute #) 0.13 (0-0.5); Hematocrit 45.9 % (42-50); Hemoglobin 14.7 gm/dl (12.5-18.0); Lymphocyte (Absolute #) 2.42 (1.0-4.6); Lymphocytes % 29.5 % (24.0-44.0); Mean Cell Volume 91.3 fl (78-100); Mean Corpuscular Hemoglobin 29.2 pg (26-32); Mean Platelet Volume 12.1 fl (7.5-11.0); Monocyte (Absolute #) 0.71 (0.0-1.3); Monocytes % 8.6 % (0.0-12.0); Neutrophil % 59.9 % (36.0-66.0); Platelet Count 140 K/mm3 (150-450); Red Blood Count 5.03 M/mm3 (4.1-5.6); Red Cell Distribution Width 13.6 % (11.5-14.0); White Blood Count 8.2 K/mm3 (4.0-10.5)
[2020-11-18] MEDS ORDERED: TORAdol 30 mg Injection ONE (13:45)
[2020-11-18] MEDS ORDERED: BABY ASPIRIN 81 MG CHEW ONE (13:45)
--- NOTE | 2020-11-18 13:50 | XRAY ---
Indication: Chest pain. Comparison: November 30, 2016. Portable chest continues to demonstrate normal heart and lungs. Bony thorax intact with minimal degenerative changes.
[2020-11-18 14:02] LABS: ALBUMIN 4.1 g/dL (3.5-5.0); ALKALINE PHOSPHATASE 111 U/L (38-126); ANION GAP 9.9 MEQ/L (5-15); BLOOD UREA NITROGEN 11 mg/dL (9-20); CHLORIDE 107 mmol/L (98-107); Calcium 8.9 mg/dL (8.4-10.2); Carbon Dioxide 27 mmol/L (22-30); Creatinine 1 1.07 mg/dL (0.66-1.25); EST GLOMERULAR FILTRATION RATE > 60.0 ML/MIN; Glucose 88 mg/dL (74-106); NT PRO BNP 128 pg/mL (0-450); Potassium 4.2 mmol/L (3.5-5.1); SGOT/AST 25 U/L (17-59); SGPT/ALT 26 U/L (0-50); SODIUM 140 mmol/L (137-145); Total Protein 6.9 g/dL (6.3-8.2)
[2020-11-18 14:05] LABS: INR 1.09 (0.8-3.0); PROTIME 12.3 SECONDS (8.83-12.87)
[2020-11-18 14:08] LABS: PTT 33.5 SECONDS (24.1-36.1)
--- NOTE | 2020-11-18 17:09 | ERPHSYRPT ---
- History of Present Illness Historian: patient Patient Subjective Stated Complaint: pt co left sided neck pain with shoulder pain sudden onset today, no injury, she states pain is worse with movement, he states on sat he has some dizzines and numbness of both arms,with fatigue nausea for six months Triage Nursing Assessment: pt alert, walked in, face mask in place, resp easy, skin w/d/p. he states he was at work when this started, has limited movement of left arm Physician History: 45 yo wm w L lateral chest pain/L shoulder pain/L sided neck pain which is worse w movement. Pt states that pain is sharp/9 on scale. He denies injury. Pain associated w dyspnea wo N/V/diaphoresis/cough/fever. He denies CAD and has had no similar pain in past. Pt has a remote h/o Afib/HTN/hyperlipidemia/smokes 1ppd. Timing/Duration: other (2hours) Activities at Onset: rest Quality: sharpness Location: other (L lateral chest/L shoulder/L neck) Chest Pain Radiation: neck (L shoulder) Severity of Pain-Max: severe Severity of Pain-Current: severe Modifying Factors: Improves With: movement Associated Symptoms: denies symptoms, shortness of breath Prior Chest Pain/Cardiac Workup: no prior chest pain Nitro Today/Relief: no nitro taken today Aspirin Treatment Today: no aspirin today Allergies/Adverse Reactions: lisinopril Allergy (Verified 11/18/20 13:12) nickel Allergy (Verified 11/18/20 20:23) Rash Home Medications: Atorvastatin Calcium [Lipitor] 10 mg PO DAILY 11/18/20 [History] Losartan Potassium 50 mg [Cozaar 50 MG] 50 mg PO DAILY 11/18/20 [History] Hx Tetanus, Diphtheria Vaccination/Date Given: Yes Hx Influenza Vaccination/Date Given: No Hx Pneumococcal Vaccination/Date Given: No Immunizations Up to Date: Yes Travel Risk - International Travel Have you traveled outside of the country in past 3 weeks: No - Coronavirus Screening Are you exhibiting any of the following symptoms?: Yes Symptoms: Headaches/Body Aches/Fatigue - Vaccine Status Have you recieved a Covid-19 vaccination: No - Review of Systems Constitutional: No Symptoms Eyes: No Symptoms Ears, Nose, & Throat: No Symptoms Respiratory: Dyspnea Cardiac: No Symptoms, Chest Pain Abdominal/Gastrointestinal: No Symptoms Genitourinary Symptoms: No Symptoms Musculoskeletal: No Symptoms Skin: No Symptoms Neurological: No Symptoms Psychological: No Symptoms Endocrine: No Symptoms Hematologic/Lymphatic: No Symptoms Immunological/Allergic: No Symptoms - Past Medical History Pertinent Past Medical History: Yes Neurological History: No Pertinent History ENT History: No Pertinent History Cardiac History: Arrhythmia, High Cholesterol, Hypertension, Other Respiratory History: Sleep Apnea Endocrine Medical History: No Pertinent History Musculoskeletal History: No Pertinent History GI Medical History: No Pertinent History History: No Pertinent History Psycho-Social History: No Pertinent History Male Reproductive Disorders: No Pertinent History Other Medical History: AFIB - Past Surgical History Past Surgical History: Yes Neuro Surgical History: No Pertinent History Cardiac: No Pertinent History Respiratory: No Pertinent History Gastrointestinal: Appendectomy Genitourinary: No Pertinent History Musculoskeletal: No Pertinent History Male Surgical History: No Pertinent History Other Surgical History: APPY - Social History Smoking Status: Current every day smoker How long have you smoked: years Exposure to second hand smoke: Yes Drug Use: none Patient Lives Alone: Yes Significant Family History: no pertinent family hx - Nursing Vital Signs Nursing Vital Signs: Initial Vital Signs Temperature 99.2 F 11/18/20 13:03 Pulse Rate 75 11/18/20 13:03 Respiratory Rate 18 11/18/20 13:03 Blood Pressure 143/80 11/18/20 13:03 O2 Sat by Pulse Oximetry 96 11/18/20 13:03 Pain Scale Pain Intensity 0 Mild hypertension - Physical Exam General Appearance: no apparent distress Eye Exam: PERRL/EOMI, eyes nml inspection Ears, Nose, Throat Exam: normal ENT inspection, TMs normal, pharynx normal, moist mucous membranes Neck Exam: normal inspection, non-tender, supple, full range of motion, No meningismus, No mass, No Brudzinski, No Kernig's Respiratory Exam: normal breath sounds, lungs clear, airway intact, No chest tenderness, No respiratory distress Cardiovascular Exam: regular rate/rhythm, normal heart sounds, No murmur Gastrointestinal/Abdomen Exam: soft, normal bowel sounds, No tenderness Back Exam: normal inspection, normal range of motion Extremity Exam: normal inspection, normal range of motion Neurologic Exam: alert, oriented x 3, cooperative, cigar inspector II-XII nml as tested, normal mood/affect, nml cerebellar function, nml station & gait, sensation nml, No motor deficits, No sensory deficit Skin Exam: normal color, warm, dry Lymphatic Exam: adenopathy SpO2 Interpretation: normal SpO2: 95 O2 Delivery: Room Air - Course EKG Interpreted by Me: RATE (NSR/R75/Borderline prolonged QTc/Nonspecific lateral T wave inversion/3-AVF Twave inversion/No acute ST changes) - Radiology Exams Chest X-ray Interpretation: Discussed w/ radiologist (Neg) Ordered Tests: Active Orders 24 hr Category Date Time Status EKG-ER Only STAT Care 11/18/20 13:27 Completed IV Insertion STAT Care 11/18/20 13:27 Completed Heart-Healthy Diet Diet 11/19/20 Breakfast Active CHEST 1 VIEW (PORTABLE) Stat Exams 11/18/20 13:28 Completed CBC W DIFF Stat Lab 11/18/20 13:10 Completed CMP Stat Lab 11/18/20 13:10 Completed D-DIMER QUANTITATIVE Stat Lab 11/18/20 13:45 Completed LIPID PROFILE AM.LAB Lab 11/19/20 04:00 Ordered NT PRO BNP Stat Lab 11/18/20 13:10 Completed PROTIME WITH INR Stat Lab 11/18/20 13:45 Completed PTT Stat Lab 11/18/20 13:45 Completed TROPONIN Q3H Lab 11/18/20 13:10 Completed TROPONIN Q3H Lab 11/18/20 16:17 Completed TROPONIN Q3H Lab 11/18/20 20:29 Completed TROPONIN Q3H Lab 11/18/20 22:30 Completed TROPONIN Q3H Lab 11/19/20 01:30 Ordered Transfer Order Routine Transfer 11/18/20 Completed Medication Summary Generic Name Dose Route Start Last Admin Trade Name Freq PRN Reason Stop Dose Admin Acetaminophen 650 mg 11/18/20 18:00 Tylenol 325 Mg PO 12/18/20 17:59 Q4H PRN PRN PAIN AND/OR FEVER Al Hydrox/Mg Hydrox/Simethicone 30 ml 11/18/20 18:00 Maalox Es 30 Ml Unit Dose PO 12/18/20 17:59 Q4H PRN PRN INDIGESTION Aspirin 325 mg 11/19/20 10:00 Ecotrin 325 Mg PO 12/19/20 09:59 DAILY PANCHO Magnesium Hydroxide 30 - 60 ml 11/18/20 18:00 Milk Of Magnesia 30 Ml PO 12/18/20 17:59 QDP PRN CONSTIPATION Nitroglycerin 0.4 mg 11/18/20 18:00 Nitrostat 0.4 Mg Tablet SL 12/18/20 17:59 .Q5MIN PRN CHEST PAIN Ondansetron HCl 4 mg 11/18/20 18:00 Zofran 4 Mg/2 Ml Vial IV 12/18/20 17:59 Q4H PRN PRN NAUSEA/VOMITING Senna/Docusate Sodium 2 udtab 11/18/20 18:00 Senokot-S Tablet PO 12/18/20 17:59 BID PRN PRN CONSTIPATION Discontinued Medications Generic Name Dose Route Start Last Admin Trade Name Freq PRN Reason Stop Dose Admin Aspirin 324 mg 11/18/20 13:29 11/18/20 13:46 Baby Aspirin 81 Mg Chew PO 11/18/20 13:30 324 mg STAT ONE Administration Aspirin Confirm 11/18/20 13:45 Baby Aspirin 81 Mg Chew Administered 11/18/20 13:46 Dose 324 mg .ROUTE .STK-MED ONE Ketorolac Tromethamine 30 mg 11/18/20 13:29 11/18/20 13:47 Toradol 30 Mg Injection IV 11/18/20 13:30 30 mg STAT ONE Administration Ketorolac Tromethamine Confirm 11/18/20 13:45 Toradol 30 Mg Injection Administered 11/18/20 13:46 Dose 30 mg .ROUTE .STK-MED ONE Lab/Rad Data: Laboratory Result Diagrams 11/18/20 13:10 11/18/20 13:10 Laboratory Results 11/18/20 11/18/20 11/18/20 Range/Units 18:22 16:17 13:45 WBC (4.0-10.5) K/mm3 RBC (4.1-5.6) M/mm3 Hgb (12.5-18.0) gm/dl Hct (42-50) % MCV (78-100) fl MCH (26-32) pg MCHC (32-36) g/dl RDW (11.5-14.0) % Plt Count (150-450) K/mm3 MPV (7.5-11.0) fl Gran % (36.0-66.0) % Eos # (Auto) (0-0.5) Absolute Lymphs (auto) (1.0-4.6) Absolute Monos (auto) (0.0-1.3) Lymphocytes % (24.0-44.0) % Monocytes % (0.0-12.0) % Eosinophils % (0.00-5.0) % Basophils % (0.0-0.4) % Absolute Granulocytes (1.4-6.9) Basophils # (0-0.4) PT (8.83-12.87) SECONDS INR (0.8-3.0) APTT (24.1-36.1) SECONDS D-Dimer 295 (215-500) ng/mL Sodium (137-145) mmol/L Potassium (3.5-5.1) mmol/L Chloride (98-107) mmol/L Carbon Dioxide (22-30) mmol/L Anion Gap (5-15) MEQ/L BUN (9-20) mg/dL Creatinine (0.66-1.25) mg/dL Estimated GFR ML/MIN Glucose (74-106) mg/dL Calcium (8.4-10.2) mg/dL Total Bilirubin (0.2-1.3) mg/dL AST (17-59) U/L ALT (0-50) U/L Alkaline Phosphatase (38-126) U/L Troponin I < 0.012 (0.000-0.034) ng/mL NT-Pro-B Natriuret Pep (0-450) pg/mL Serum Total Protein (6.3-8.2) g/dL Albumin (3.5-5.0) g/dL SARS-CoV-2 (PCR) NEGATIVE (NEGATIVE) 11/18/20 11/18/20 11/18/20 Range/Units 13:45 13:10 13:10 WBC (4.0-10.5) K/mm3 RBC (4.1-5.6) M/mm3 Hgb (12.5-18.0) gm/dl Hct (42-50) % MCV (78-100) fl MCH (26-32) pg MCHC (32-36) g/dl RDW (11.5-14.0) % Plt Count (150-450) K/mm3 MPV (7.5-11.0) fl Gran % (36.0-66.0) % Eos # (Auto) (0-0.5) Absolute Lymphs (auto) (1.0-4.6) Absolute Monos (auto) (0.0-1.3) Lymphocytes % (24.0-44.0) % Monocytes % (0.0-12.0) % Eosinophils % (0.00-5.0) % Basophils % (0.0-0.4) % Absolute Granulocytes (1.4-6.9) Basophils # (0-0.4) PT 12.3 (8.83-12.87) SECONDS INR 1.09 (0.8-3.0) APTT 33.5 (24.1-36.1) SECONDS D-Dimer (215-500) ng/mL Sodium 140 (137-145) mmol/L Potassium 4.2 (3.5-5.1) mmol/L Chloride 107 (98-107) mmol/L Carbon Dioxide 27 (22-30) mmol/L Anion Gap 9.9 (5-15) MEQ/L BUN 11 (9-20) mg/dL Creatinine 1.07 (0.66-1.25) mg/dL Estimated GFR > 60.0 ML/MIN Glucose 88 (74-106) mg/dL Calcium 8.9 (8.4-10.2) mg/dL Total Bilirubin 0.40 (0.2-1.3) mg/dL AST 25 (17-59) U/L ALT 26 (0-50) U/L Alkaline Phosphatase 111 (38-126) U/L Troponin I < 0.012 (0.000-0.034) ng/mL NT-Pro-B Natriuret Pep 128 (0-450) pg/mL Serum Total Protein 6.9 (6.3-8.2) g/dL Albumin 4.1 (3.5-5.0) g/dL SARS-CoV-2 (PCR) (NEGATIVE) 11/18/20 Range/Units 13:10 WBC 8.2 (4.0-10.5) K/mm3 RBC 5.03 (4.1-5.6) M/mm3 Hgb 14.7 (12.5-18.0) gm/dl Hct 45.9 (42-50) % MCV 91.3 (78-100) fl MCH 29.2 (26-32) pg MCHC 32.0 (32-36) g/dl RDW 13.6 (11.5-14.0) % Plt Count 140 L (150-450) K/mm3 MPV 12.1 H (7.5-11.0) fl Gran % 59.9 (36.0-66.0) % Eos # (Auto) 0.13 (0-0.5) Absolute Lymphs (auto) 2.42 (1.0-4.6) Absolute Monos (auto) 0.71 (0.0-1.3) Lymphocytes % 29.5 (24.0-44.0) % Monocytes % 8.6 (0.0-12.0) % Eosinophils % 1.6 (0.00-5.0) % Basophils % 0.4 (0.0-0.4) % Absolute Granulocytes 4.92 (1.4-6.9) Basophils # 0.03 (0-0.4) PT (8.83-12.87) SECONDS INR (0.8-3.0) APTT (24.1-36.1) SECONDS D-Dimer (215-500) ng/mL Sodium (137-145) mmol/L Potassium (3.5-5.1) mmol/L Chloride (98-107) mmol/L Carbon Dioxide (22-30) mmol/L Anion Gap (5-15) MEQ/L BUN (9-20) mg/dL Creatinine (0.66-1.25) mg/dL Estimated GFR ML/MIN Glucose (74-106) mg/dL Calcium (8.4-10.2) mg/dL Total Bilirubin (0.2-1.3) mg/dL AST (17-59) U/L ALT (0-50) U/L Alkaline Phosphatase (38-126) U/L Troponin I (0.000-0.034) ng/mL NT-Pro-B Natriuret Pep (0-450) pg/mL Serum Total Protein (6.3-8.2) g/dL Albumin (3.5-5.0) g/dL SARS-CoV-2 (PCR) (NEGATIVE) - Progress Progress: improved Progress Note: 11/18/20 17:[address] Hester due to flipped T-waves in inferior leads/V5-V6 and risk factors of HTN/Hyperlipidemia/tobacco abuse Pain improved w 30mg IV toradol/324 asa po Discussed with : Smith Counseled pt/family regarding: lab results, diagnosis, rad results - Departure Departure Disposition: Observation Clinical Impression: Chest pain Condition: Stable Critical Care Time: No
[2020-11-18] MEDS ORDERED: MAALOX ES 30 ML UNIT DOSE PO PRN (18:00)
[2020-11-18] MEDS ORDERED: Nitrostat 0.4 MG Tablet SL PRN (18:00)
[2020-11-18] MEDS ORDERED: Zofran 4 MG/2 ML VIAL IV PRN (18:00)
[2020-11-18] MEDS ORDERED: Senokot-S Tablet PO PRN (18:00)
[2020-11-18] MEDS ORDERED: TYLENOL 325 MG PO PRN (18:00)
[2020-11-18] MEDS ORDERED: MILK OF MAGNESIA 30 ML PO PRN (18:00)
[2020-11-19 06:10] LABS: Risk Ratio 6.7
[2020-11-19] MEDS ORDERED: Ecotrin 325 MG PO SCH (10:00)
[2020-11-19] MEDS ORDERED: Cozaar 50 MG PO SCH (10:00)
[2020-11-19] MEDS ORDERED: NON-FORMULARY ITEM (Atorvastatin Calcium [Lipitor] 10 MG) PO SCH (10:00)
--- NOTE | 2020-11-19 11:51 | SSS ---
DISCHARGE DIAGNOSIS: LEFT-SIDED NECK PAIN. HOSPITAL COURSE: The patient is a 45 year-old white male patient who reports he was at work when he had sudden onset of pain in the left side of his neck up to the back of his head on the left side and down his left shoulder. He reports he has been having problems with numbness and tingling in his hands which have been more actually in his right hand. He is right hand dominant. The patient reported the last week he was very weak which has resolved somewhat but had no other symptoms otherwise. The patient reports that it is excruciatingly painful to move his left arm. Neck position did not seem to make a difference. The patient received 30 mg of Toradol in the emergency room after which the patient's pain has resolved. He has not had a recurrence since that time. PAST MEDICAL/SURGICAL HISTORY: The patient's past medical history is essentially remarkable for hypertension and hyperlipidemia. He has not been taking his blood pressure medicine as his blood pressure got low on it and he stopped the medications on his own. SOCIAL HISTORY: The patient otherwise smokes one pack per day. PHYSICAL EXAMINATION: His vital signs on admission were noted to be temperature 99.2F, pulse 75, respiratory rate 18, blood pressure 143/80. O2 saturation 96% on room air. HEENT: Normocephalic, atraumatic. Pupils equal round reactive to light. Extraocular movements are intact. Oropharynx is pink and moist. NECK: Supple without lymphadenopathy, thyromegaly or JVD. CHEST: Clear to auscultation. HEART: Regular rate and rhythm. ABDOMEN: Soft. No palpable masses. EXTREMITIES: Without cyanosis, clubbing or edema. NEUROLOGIC: The patient is alert and oriented x3. No focal deficits noted. LAB DATA AND TESTS: The patient's evaluations in the emergency room and observation had several troponins that have all been less than 1.012. He had a lipid panel with HDL 24, LDL 116. His triglycerides were 243. His COVID test was negative. INR was 1.09. D-dimer was 295. Metabolic panel was entirely normal. BUN 11, creatinine 1.08. Sugar 88. CBC was normal as well with hemoglobin 14.7, white count 8.2, PLT count 140,000. He had a chest x-ray which was normal. His EKG showed slight T-wave inversion in the lateral leads on one EKG. He is sinus bradycardia with a rate of 46. ASSESSMENT: A patient with left-sided neck pain essentially more concerning for neuropathy. We will see if we can get a MRI of the neck or at least a CT scan of the neck before he goes home. He was given a prescription for Toradol to use 10 mg every six hours as needed for no more than five days and to follow up in the office in one week.
[2020-11-19 11:53] VITALS: BP 149/79; PULSE 54; O2SAT 100
--- NOTE | 2020-11-19 14:06 | XRAY ---
Indication: Neck pain. No known injury. Multiple contiguous axial images obtained through the cervical spine. Sagittal and coronal reformatted images obtained. Comparison: None Axial images negative for acute fracture, suspicious bony lesions, or spinal canal stenosis. Minimal C4-C7 degenerative endplate spurring. Sagittal and coronal reformatted images demonstrates minimal lordotic reversal, positional versus paraspinal spasm. Vertebral body heights/disc spaces maintained. No acute compression fracture, subluxation, or jumped facet. Normal appearing craniocervical junction. Visualized noncontrasted soft tissues including base of the brain unremarkable. Minimal biapical subpleural cystic changes. Impression: 1. Cervical lordotic reversal, positional versus paraspinal spasm. 2. Minimal C4-C7 degenerative changes. MRI may yield further information if clinically warranted.
[2020-11-19] MEDS ORDERED: Zocor 10MG PO SCH (22:00)
== END 2020-11-19 14:28 | disposition home or self-care (01) ==
LOC: ED 12:59 → MED SURG 20:04
PROVIDERS: ADMIT Family Medicine; ATTEND Family Medicine
DX: M54.2 Cervicalgia (principal); R07.9 Chest pain, unspecified; I10 Essential (primary) hypertension; E78.5 Hyperlipidemia, unspecified; F17.200 Nicotine dependence, unspecified, uncomplicated; Z79.899 Other long term (current) drug therapy; R20.0 Anesthesia of skin; Z20.828 Contact with and (suspected) exposure to other viral communicable diseases
CPT/HCPCS: 36000; 36415; 71045; 72125; 80053; 80061; 83721; 83880; 84484; 85025; 85379; 85610; 85730; 93005; 93268; 94760; 96374; 99284; G0378; U0003; J1885; A9270-GY

== ENCOUNTER 2020-12-01 01:20 | Emergency (ER) | payer OTHER ==
[2020-12-01] MEDS ORDERED: Pepcid 20 MG VIAL IV ONE ×2 (01:35→01:36)
[2020-12-01] MEDS ORDERED: BENADRYL 50 MG/ML ONE (01:35)
[2020-12-01] MEDS ORDERED: solu-MEDROL 125 MG ONE (01:36)
[2020-12-01] MEDS ORDERED: solu-MEDROL 125 MG IV ONE (01:36)
[2020-12-01] MEDS ORDERED: BENADRYL 50 MG/ML IV ONE (01:36)
--- NOTE | 2020-12-01 01:43 | ERPHSYRPT ---
- History of Present Illness Time Seen by Provider: 12/01/20 01:36 Patient Subjective Stated Complaint: generalized itching and rash to bilat legs Triage Nursing Assessment: pt alert and oriented, answers questions approp. pt ambulatory with steady gait noted. respirations nonlabored with lungs cta. pt reports no difficulty breathing or swallowing. red raised rash to bilat legs. redness noted to bilat feet and ankles. Physician History: 45 years old male with a history of atrial fibrillation presented in the ER with chief complaint of bilateral lower extremity itching and rash started almost 3 hours ago after he took up for the alcohol. Back and neck pain. Patient reports he has never taken it before. Reports constant itching worsening over the course of 3 hours. Denies any difficulty breathing, throat closing sensation, palpitations/shortness of breath. Denies any dizziness lightheadedness. Timing/Duration: hour(s) (3), sudden, worse Severity: moderate Associated Symptoms: rash Allergies/Adverse Reactions: lisinopril Allergy (Verified 11/18/20 13:12) nickel Allergy (Verified 11/18/20 20:23) Rash Hx Tetanus, Diphtheria Vaccination/Date Given: Yes Hx Influenza Vaccination/Date Given: No Hx Pneumococcal Vaccination/Date Given: No Immunizations Up to Date: Yes Travel Risk - International Travel Have you traveled outside of the country in past 3 weeks: No - Coronavirus Screening Are you exhibiting any of the following symptoms?: No Close contact with a COVID-19 positive Pt in past 14-21 Days: No - Vaccine Status Have you recieved a Covid-19 vaccination: No - Review of Systems Constitutional: No Symptoms Eyes: No Symptoms Ears, Nose, & Throat: No Symptoms Respiratory: No Symptoms Cardiac: No Symptoms Abdominal/Gastrointestinal: No Symptoms Genitourinary Symptoms: No Symptoms Musculoskeletal: Back Pain Skin: Pruritis, Rash Neurological: No Symptoms Psychological: No Symptoms Endocrine: No Symptoms Hematologic/Lymphatic: No Symptoms Immunological/Allergic: No Symptoms - Past Medical History Pertinent Past Medical History: Yes Neurological History: No Pertinent History ENT History: No Pertinent History Cardiac History: Arrhythmia, High Cholesterol, Hypertension, Other Respiratory History: Sleep Apnea Endocrine Medical History: No Pertinent History Musculoskeletal History: No Pertinent History GI Medical History: No Pertinent History History: No Pertinent History Psycho-Social History: No Pertinent History Male Reproductive Disorders: No Pertinent History Other Medical History: AFIB. possible pinched nerve in neck - Past Surgical History Past Surgical History: Yes Neuro Surgical History: No Pertinent History Cardiac: No Pertinent History Respiratory: No Pertinent History Gastrointestinal: Appendectomy Genitourinary: No Pertinent History Musculoskeletal: No Pertinent History Male Surgical History: No Pertinent History Other Surgical History: APPY - Social History Smoking Status: Current every day smoker How long have you smoked: years Exposure to second hand smoke: Yes Drug Use: none Patient Lives Alone: No Significant Family History: no pertinent family hx - Nursing Vital Signs Nursing Vital Signs: Initial Vital Signs Pulse Rate 83 12/01/20 01:24 Respiratory Rate 16 12/01/20 01:24 Blood Pressure 144/83 12/01/20 01:24 O2 Sat by Pulse Oximetry 95 12/01/20 01:24 - Physical Exam General Appearance: no apparent distress, alert Eye Exam: PERRL/EOMI, eyes nml inspection Ears, Nose, Throat Exam: normal ENT inspection, TMs normal, pharynx normal Neck Exam: normal inspection, non-tender, supple, full range of motion Respiratory Exam: normal breath sounds, lungs clear Cardiovascular Exam: regular rate/rhythm, normal heart sounds Gastrointestinal/Abdomen Exam: soft, normal bowel sounds Back Exam: normal inspection, normal range of motion Extremity Exam: normal range of motion, pelvis stable Neurologic Exam: alert, oriented x 3, cooperative, overcoiler II-XII nml as tested Skin Exam: rash (Erythematous wheals/raised rash with itch vaughan. Blanchable. Nontender.) SpO2 Interpretation: normal SpO2: 95 O2 Delivery: Room Air - Progress Progress: improved Progress Note: Is given Solu-Medrol/Benadryl/Pepcid, on reevaluation rash is much improved. Does not have any difficulty breathing, tongue swelling/floor of mild swelling/throat swelling. Is being discharged on Benadryl/Pepcid/30 and outpatient follow-up discussed signs symptoms of worsening needing return to ER which he seems understanding Counseled pt/family regarding: diagnosis, need for follow-up - Departure Departure Disposition: Home Clinical Impression: Allergic reaction Qualifiers: Encounter type: initial encounter Qualified Code(s): T78.40XA - Allergy, unspecified, initial encounter Condition: Stable Critical Care Time: No Referrals: RAFY COLE [Primary Care Provider] - (1-2 days for reevaluation) Instructions: Anaphylaxis (DC), Hives (DC) Additional Instructions: Do not take Toradol or any other NSAIDs like ibuprofen/Aleve. Follow-up with primary care physician for reevaluation. Return to ER if have any difficulty breathing, throat closing sensation, swelling of tongue/floor of mouth, feeling dizzy lightheaded etc. Prescriptions: Diphenhydramine HCl 25 mg [Benadryl 25 mg Capsule] 25 mg PO Q4H PRN PRN #20 capsule PRN Reason: Allergies Prednisone 20 mg [Deltasone 20 mg] 60 mg PO DAILY 5 Days #15 tablet Famotidine 20 mg [Pepcid 20 MG] 20 mg PO BID #10 tablet
[2020-12-01 02:53] VITALS: BP 127/69; PULSE 58; O2SAT 94
== END 2020-12-01 02:53 | disposition home or self-care (01) ==
LOC: ED 01:20
DX: T78.40XA Allergy, unspecified, initial encounter (principal)
CPT/HCPCS: 36000; 96374; 96375; 99284; J1200; J2930

== ENCOUNTER 2021-04-13 22:46 | Emergency (ER) | payer OTHER ==
[2021-04-13] MEDS ORDERED: DECADRON 10MG INJ. IM ONE (23:06)
[2021-04-13] MEDS ORDERED: EPINEPHRINE 1MG/ML AMP IM ONE (23:06)
[2021-04-13] MEDS ORDERED: DECADRON 10MG INJ. ONE (23:09)
[2021-04-13] MEDS ORDERED: EPINEPHRINE 1MG/ML AMP ONE (23:09)
--- NOTE | 2021-04-13 23:17 | ERPHSYRPT ---
- History of Present Illness Time Seen by Provider: 04/13/21 22:51 Source: patient Exam Limitations: no limitations Patient Subjective Stated Complaint: pt states he started getting a rash and itching approx 30 min prior to arrival. states he had icelandic tonight approx 1-1 .5 hours before rash started. Triage Nursing Assessment: pt alert and oriented, answers questions approp. pt ambulatory with steady gait noted. respirations nonlabored with lungs cta. skin flushed. mild sweling and redness noted to bilat hands. redness and rash noted to bilat upper legs. Physician History: Patient here with allergic reaction. Patient states he stepped outside to smoke a cigarette. States he had sudden onset of allergic reaction type symptoms. This includes bilateral lower extremity redness, itching. Approximately redness, itching. Complains of some subjective shortness of breath. No falls no trauma. He is not on CORRY inhibitor. No signs of CORRY inhibitor angioedema. Patient states this is happened once before. States that he was unsure what caused at this point in time. States he has no known allergic exposures. Timing/Duration: today Severity: moderate Modifying Factors: Improves With: other Associated Symptoms: denies symptoms Allergies/Adverse Reactions: lisinopril Allergy (Verified 04/13/21 23:05) nickel Allergy (Verified 04/13/21 23:05) Rash Hx Tetanus, Diphtheria Vaccination/Date Given: Yes Hx Influenza Vaccination/Date Given: No Hx Pneumococcal Vaccination/Date Given: No Immunizations Up to Date: Yes Travel Risk - International Travel Have you traveled outside of the country in past 3 weeks: No - Coronavirus Screening Are you exhibiting any of the following symptoms?: No Close contact with a COVID-19 positive Pt in past 14-21 Days: No - Vaccine Status Have you recieved a Covid-19 vaccination: No - Review of Systems Constitutional: No Fever, No Chills Eyes: No Symptoms Ears, Nose, & Throat: No Symptoms Respiratory: No Cough, No Dyspnea Cardiac: No Chest Pain, No Edema, No Syncope Abdominal/Gastrointestinal: No Abdominal Pain, No Nausea, No Vomiting, No Diarrhea Genitourinary Symptoms: No Dysuria Musculoskeletal: No Back Pain, No Neck Pain Skin: Other (Lateral lower extremity redness and itching, upper extremity redness and itching.), No Rash Neurological: No Dizziness, No Focal Weakness, No Sensory Changes Psychological: No Symptoms Endocrine: No Symptoms All Other Systems: Reviewed and Negative - Past Medical History Pertinent Past Medical History: Yes Neurological History: No Pertinent History ENT History: No Pertinent History Cardiac History: Arrhythmia, High Cholesterol, Hypertension, Other Respiratory History: Sleep Apnea Endocrine Medical History: No Pertinent History Musculoskeletal History: No Pertinent History GI Medical History: No Pertinent History History: No Pertinent History Psycho-Social History: No Pertinent History Male Reproductive Disorders: No Pertinent History Other Medical History: AFIB - Past Surgical History Past Surgical History: Yes Neuro Surgical History: No Pertinent History Cardiac: No Pertinent History Respiratory: No Pertinent History Gastrointestinal: Appendectomy Genitourinary: No Pertinent History Musculoskeletal: No Pertinent History Male Surgical History: No Pertinent History Other Surgical History: APPY - Social History Smoking Status: Current every day smoker How long have you smoked: 30yrs Exposure to second hand smoke: No Drug Use: none Patient Lives Alone: No Significant Family History: no pertinent family hx - Nursing Vital Signs Nursing Vital Signs: Initial Vital Signs Temperature 98.1 F 04/13/21 22:53 Pulse Rate 95 H 04/13/21 22:53 Respiratory Rate 18 04/13/21 22:53 Blood Pressure 157/90 04/13/21 22:53 O2 Sat by Pulse Oximetry 94 L 04/13/21 22:53 Pain Scale Pain Intensity 0 - Physical Exam General Appearance: no apparent distress, alert Eye Exam: PERRL/EOMI, eyes nml inspection Ears, Nose, Throat Exam: normal ENT inspection, TMs normal, pharynx normal, moist mucous membranes Neck Exam: normal inspection, non-tender, supple, full range of motion Respiratory Exam: normal breath sounds, lungs clear, No respiratory distress Cardiovascular Exam: regular rate/rhythm, normal heart sounds, normal peripheral pulses Gastrointestinal/Abdomen Exam: soft, normal bowel sounds, No tenderness, No mass Back Exam: normal inspection, normal range of motion, No CVA tenderness, No vertebral tenderness Extremity Exam: normal inspection, normal range of motion, pelvis stable Neurologic Exam: alert, oriented x 3, cooperative, normal mood/affect, nml cerebellar function, nml station & gait, sensation nml, No motor deficits Skin Exam: normal color, warm, dry, No rash Lymphatic Exam: No adenopathy SpO2: 95 O2 Delivery: Room Air (Lower extremity redness, itching, upper extremity redness and itching. No signs of oral airway involvement, no angioedema, no wheezing, other shortness of breath.) - Course Nursing assessment & vital signs reviewed: Yes Ordered Tests: Medication Summary Discontinued Medications Generic Name Dose Route Start Last Admin Trade Name Halley PRN Reason Stop Dose Admin Dexamethasone Sodium Phosphate 8 mg 04/13/21 23:06 04/13/21 23:13 Dexamethasone Sod Phosphate 10 Mg/Ml IM 04/13/21 23:07 8 mg STAT ONE Administration Dexamethasone Sodium Phosphate Confirm 04/13/21 23:09 Dexamethasone Sod Phosphate 10 Mg/Ml Administered 04/13/21 23:10 Dose 10 mg .ROUTE .STK-MED ONE Epinephrine HCl 0.3 mg 04/13/21 23:06 04/13/21 23:13 Epinephrine 1 Mg/Ml Ampule IM 04/13/21 23:07 0.3 mg STAT ONE Administration Epinephrine HCl Confirm 04/13/21 23:09 Epinephrine 1 Mg/Ml Ampule Administered 04/13/21 23:10 Dose 1 mg .ROUTE .STK-MED ONE - Progress Progress: improved Progress Note: 04/13/21 23:17 Patient states he drove himself here tonight cannot get a ride home. Therefore will not give any Benadryl. Because he drove himself we will give steroids and fast acting epinephrine. We will observe the patient here to make sure he has resolution of symptoms. 04/14/21 00:06 Patient was observed in the emergency department. Stated he felt much improved. Stated he felt ready to go home at this point in time. Will discharge patient home close follow-up with PCP. Return here for any new or changing symptoms. Counseled pt/family regarding: diagnosis, need for follow-up, smoking cessation - Departure Departure Disposition: Release to OR/VTC Clinical Impression: Allergic reaction Condition: Stable Critical Care Time: No Referrals: RAFY COLE [Primary Care Provider] - Instructions: Adverse Drug Reactions, Adult (DC)
[2021-04-14 00:47] VITALS: PULSE 90
[2021-04-14 00:55] VITALS: BP 138/82; O2SAT 98
== END 2021-04-14 00:55 | disposition home or self-care (01) ==
LOC: ED 22:46
DX: T78.40XA Allergy, unspecified, initial encounter (principal)
CPT/HCPCS: 96372; 99284; J0171; J1100

== ENCOUNTER 2022-03-07 20:25 | Emergency (ER) | payer OTHER ==
[2022-03-07] MEDS ORDERED: Sodium Chloride 0.9% 1000 ML 1,000 ML IV STA (21:09)
[2022-03-07] MEDS ORDERED: TYLENOL EXTRA STRENGTH 500 MG PO ONE (21:11)
[2022-03-07] MEDS ORDERED: TYLENOL EXTRA STRENGTH 500 MG ONE (21:12)
[2022-03-07] MEDS ORDERED: Sodium Chloride 0.9% 1000 ML 1,000 ML ONE (21:12)
[2022-03-07 21:32] LABS: Absolute Neutrophil Ct (ANC) 3.39 x10^3/uL (1.4-6.9); Basophil (Absolute #) 0.02 x10^3/uL (0-0.4); Eosinophil (Absolute #) 0.09 x10^3/uL (0-0.5); Hematocrit 45.3 % (42-50); Hemoglobin 14.5 g/dL (12.5-18.0); Lymphocyte (Absolute #) 0.46 x10^3/uL (1.0-4.6); Lymphocytes % 10.2 % (24.0-44.0); Mean Cell Volume 91.1 fL (78-100); Mean Corpuscular Hemoglobin 29.2 pg (26-32); Mean Platelet Volume 12.1 fL (7.5-11.0); Monocyte (Absolute #) 0.53 x10^3/uL (0.0-1.3); Monocytes % 11.7 % (0.0-12.0); Platelet Count 111 x10^3/uL (150-450); Red Blood Count 4.97 x10^6/uL (4.1-5.6); Red Cell Distribution Width 12.9 % (11.5-14.0); White Blood Count 4.5 x10^3/uL (4.0-10.5)
[2022-03-07 21:37] LABS: Mucus SLIGHT /HPF (NEGATIVE)
[2022-03-07 21:38] LABS: Appearance CLEAR (CLEAR); Bilirubin NEGATIVE (NEGATIVE); Dipstick done @ ? MAIN LAB; Glucose NEGATIVE (NEGATIVE); Ketones NEGATIVE (NEGATIVE); Nitrite NEGATIVE (NEGATIVE); Protein,Urine Dip NEGATIVE (Negative); RBC SMALL Ery/ul (0-5); Specific Gravity 1.025 (1.005-1.025); Urobilinogen 1 mg/dL (0-1)
[2022-03-07 21:39] LABS: ALBUMIN 4.2 g/dL (3.5-5.0); ALKALINE PHOSPHATASE 125 U/L (38-126); ANION GAP 9.4 MEQ/L (5-15); BLOOD UREA NITROGEN 10 mg/dL (9-20); CHLORIDE 100 mmol/L (98-107); Calcium 8.5 mg/dL (8.4-10.2); Carbon Dioxide 31 mmol/L (22-30); Creatinine 1 0.93 mg/dL (0.66-1.25); EST GLOMERULAR FILTRATION RATE > 60.0 ML/MIN; Glucose 91 mg/dL (74-106); Potassium 3.5 mmol/L (3.5-5.1); SGOT/AST 20 U/L (17-59); SGPT/ALT 22 U/L (0-50); SODIUM 136 mmol/L (137-145); Total Protein 7.5 g/dL (6.3-8.2); Urine Cultured Indicated? NO
[2022-03-07 22:06] LABS: INFLUENZA A NEGATIVE (NEGATIVE); INFLUENZA B NEGATIVE (NEGATIVE); RESPIRATORY SYNCTIAL VIRUS NEGATIVE (Negative)
[2022-03-07 22:33] LABS: SARS-CoV-2 Xpert Express POSITIVE (NEGATIVE)
--- NOTE | 2022-03-07 22:35 | ERPHSYRPT ---
- History of Present Illness Time Seen by Provider: 03/07/22 20:45 Source: patient Exam Limitations: no limitations Patient Subjective Stated Complaint: pt states "I don't feel good. My hands are numb. 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 Patient report he is feeling weak fatigued tired and dehydrated. Has no energy to do his routine activities. He is also having subjective feeling of fever and chills and feeling numbness in fingertips bilaterally with nonproductive cough with headache and neck pain. Denies any weakness, shortness of breath, sick contact. Denies any abdominal pain nausea or vomiting. Patient has a temperature of 103 on presentation. Not in any distress. Timing/Duration: today, gradual onset, worse Cough Quality/Degree: moderate, dry cough Possible Cause: no prior episodes Modifying Factors: Worsens With: coughing, exertion Associated Symptoms: fever, chills, chest pain/soreness, cough, headache, muscle aches, No dizziness, No nasal drainage, No shortness of breath Allergies/Adverse Reactions: lisinopril Allergy (Verified 03/07/22 20:52) nickel Allergy (Verified 03/07/22 20:52) Rash Hx Tetanus, Diphtheria Vaccination/Date Given: Yes Hx Influenza Vaccination/Date Given: No Hx Pneumococcal Vaccination/Date Given: No Travel Risk - International Travel Have you traveled outside of the country in past 3 weeks: No - Coronavirus Screening Are you exhibiting any of the following symptoms?: Yes Symptoms: Fever, Headaches/Body Aches/Fatigue Close contact with a COVID-19 positive Pt in past 14-21 Days: No - Vaccine Status Have you recieved a Covid-19 vaccination: No - Review of Systems Constitutional: Fever, Chills, Fatigue, Weakness Eyes: No Symptoms Ears, Nose, & Throat: No Symptoms Respiratory: Cough Cardiac: No Symptoms Abdominal/Gastrointestinal: No Symptoms Genitourinary Symptoms: No Symptoms Musculoskeletal: Neck Pain Skin: No Symptoms Neurological: Headache Psychological: No Symptoms Hematologic/Lymphatic: No Symptoms Immunological/Allergic: No Symptoms - Past Medical History Pertinent Past Medical History: Yes Neurological History: No Pertinent History ENT History: No Pertinent History Cardiac History: Arrhythmia, High Cholesterol, Hypertension, Other Respiratory History: Sleep Apnea Endocrine Medical History: No Pertinent History Musculoskeletal History: No Pertinent History GI Medical History: No Pertinent History History: No Pertinent History Psycho-Social History: No Pertinent History Male Reproductive Disorders: No Pertinent History Other Medical History: AFIB - Past Surgical History Past Surgical History: Yes Neuro Surgical History: No Pertinent History Cardiac: No Pertinent History Respiratory: No Pertinent History Gastrointestinal: Appendectomy Genitourinary: No Pertinent History Musculoskeletal: No Pertinent History Male Surgical History: No Pertinent History Other Surgical History: APPY - Social History Smoking Status: Current every day smoker How long have you smoked: 30yrs Exposure to second hand smoke: No Drug Use: none Patient Lives Alone: No Significant Family History: no pertinent family hx - Nursing Vital Signs Nursing Vital Signs: Initial Vital Signs Temperature 103 F 03/07/22 20:54 Pulse Rate 81 03/07/22 20:54 Respiratory Rate 18 03/07/22 20:54 Blood Pressure 188/88 03/07/22 20:54 O2 Sat by Pulse Oximetry 97 03/07/22 20:54 Pain Scale Pain Intensity 2 - Physical Exam General Appearance: no apparent distress, alert Eye Exam: PERRL/EOMI Ears, Nose, Throat Exam: normal ENT inspection, TMs normal, pharynx normal, moist mucous membranes Neck Exam: normal inspection, non-tender, supple, full range of motion, No meningismus, No limited range of motion, No lymphadenopathy, No midline tenderness Respiratory Exam: normal breath sounds, lungs clear Cardiovascular Exam: regular rate/rhythm, normal heart sounds Gastrointestinal/Abdomen Exam: soft, normal bowel sounds, No tenderness Back Exam: normal inspection, normal range of motion Extremity Exam: normal inspection, normal range of motion Neurologic Exam: alert, oriented x 3, cooperative Skin Exam: normal color SpO2 Interpretation: normal SpO2: 97 O2 Delivery: Room Air Ordered Tests: Active Orders 24 hr Category Date Time Status CHEST 1 VIEW (PORTABLE) Stat Exams 03/07/22 21:08 Taken BLOOD CULTURE Stat Lab 03/07/22 21:27 Received CBC W DIFF Stat Lab 03/07/22 21:27 Completed CMP Stat Lab 03/07/22 21:27 Completed PROCALCITONIN Stat Lab 03/07/22 21:27 Completed UA W/RFX CULTURE Stat Lab 03/07/22 21:27 Completed Medication Summary Discontinued Medications Generic Name Dose Route Start Last Admin Trade Name Halley PRN Reason Stop Dose Admin Acetaminophen 1,000 mg 03/07/22 21:11 03/07/22 21:13 Acetaminophen 500 Mg Tablet PO 03/07/22 21:12 1,000 mg STAT ONE Administration Acetaminophen Confirm 03/07/22 21:12 Acetaminophen 500 Mg Tablet Administered 03/07/22 21:13 Dose 1,000 mg .ROUTE .STK-MED ONE Sodium Chloride 1,000 mls @ 999 mls/hr 03/07/22 21:09 03/07/22 21:13 Sodium Chloride 0.9% 1000 Ml IV 03/07/22 22:09 999 mls/hr .Q1H1M STA Administration Sodium Chloride Confirm 03/07/22 21:12 Sodium Chloride 0.9% 1000 Ml Administered 03/07/22 21:13 Dose 1,000 mls @ ud .ROUTE .STK-MED ONE Lab/Rad Data: Laboratory Result Diagrams 03/07/22 21:27 03/07/22 21:27 Laboratory Results 03/07/22 03/07/22 03/07/22 Range/Units 21:27 21:27 21:27 WBC (4.0-10.5) x10^3/uL RBC (4.1-5.6) x10^6/uL Hgb (12.5-18.0) g/dL Hct (42-50) % MCV (78-100) fL MCH (26-32) pg MCHC (32-36) g/dL RDW (11.5-14.0) % Plt Count (150-450) x10^3/uL MPV (7.5-11.0) fL Gran % (36.0-66.0) % Immature Gran % (Auto) (0.00-0.4) % Nucleat RBC Rel Count (0.00-0.1) % Eos # (Auto) (0-0.5) x10^3/uL Immature Gran # (Auto) (0.00-0.03) x10^3u/L Absolute Lymphs (auto) (1.0-4.6) x10^3/uL Absolute Monos (auto) (0.0-1.3) x10^3/uL Absolute Nucleated RBC (0.00-0.01) x10^3u/L Lymphocytes % (24.0-44.0) % Monocytes % (0.0-12.0) % Eosinophils % (0.00-5.0) % Basophils % (0.0-0.4) % Absolute Granulocytes (1.4-6.9) x10^3/uL Basophils # (0-0.4) x10^3/uL Sodium (137-145) mmol/L Potassium (3.5-5.1) mmol/L Chloride (98-107) mmol/L Carbon Dioxide (22-30) mmol/L Anion Gap (5-15) MEQ/L BUN (9-20) mg/dL Creatinine (0.66-1.25) mg/dL Estimated GFR ML/MIN Glucose (74-106) mg/dL Calcium (8.4-10.2) mg/dL Total Bilirubin (0.2-1.3) mg/dL AST (17-59) U/L ALT (0-50) U/L Alkaline Phosphatase (38-126) U/L Serum Total Protein (6.3-8.2) g/dL Albumin (3.5-5.0) g/dL Procalcitonin 0.064 (0.030-0.080) ng/mL Urinalys Dipstick Clnc MAIN LAB Urine Color YELLOW (YELLOW) Urine Appearance CLEAR (CLEAR) Urine pH 6.0 (5-6) Ur Specific [place] 1.025 (1.005-1.025) POC Urine Protein Conf NEGATIVE (Negative) Urine Ketones NEGATIVE (NEGATIVE) Urine Nitrite NEGATIVE (NEGATIVE) Urine Bilirubin NEGATIVE (NEGATIVE) Urine Urobilinogen 1 (0-1) mg/dL Urine Leukocytes NEGATIVE (NEGATIVE) Urine WBC (Auto) NONE (0-5) /HPF Urine RBC (Auto) 3-5 (0-2) /HPF U Epithel Cells (Auto) NONE (FEW) /HPF Urine Bacteria (Auto) NONE (NEGATIVE) /HPF Urine RBC SMALL (0-5) [place]/ul Urine Mucus (Auto) SLIGHT (NEGATIVE) /HPF Ur Culture Indicated? NO Urine Glucose NEGATIVE (NEGATIVE) mg/dL Influenza Type A Ag NEGATIVE (NEGATIVE) Influenza Type B Ag NEGATIVE (NEGATIVE) RSV (PCR) NEGATIVE (Negative) SARS-CoV-2 (PCR) POSITIVE A (NEGATIVE) 03/07/22 03/07/22 Range/Units 21:27 21:27 WBC 4.5 (4.0-10.5) x10^3/uL RBC 4.97 (4.1-5.6) x10^6/uL Hgb 14.5 (12.5-18.0) g/dL Hct 45.3 (42-50) % MCV 91.1 (78-100) fL MCH 29.2 (26-32) pg MCHC 32.0 (32-36) g/dL RDW 12.9 (11.5-14.0) % Plt Count 111 L (150-450) x10^3/uL MPV 12.1 H (7.5-11.0) fL Gran % 75.0 H (36.0-66.0) % Immature Gran % (Auto) 0.7 H (0.00-0.4) % Nucleat RBC Rel Count 0.0 (0.00-0.1) % Eos # (Auto) 0.09 (0-0.5) x10^3/uL Immature Gran # (Auto) 0.03 (0.00-0.03) x10^3u/L Absolute Lymphs (auto) 0.46 L (1.0-4.6) x10^3/uL Absolute Monos (auto) 0.53 (0.0-1.3) x10^3/uL Absolute Nucleated RBC 0.00 (0.00-0.01) x10^3u/L Lymphocytes % 10.2 L (24.0-44.0) % Monocytes % 11.7 (0.0-12.0) % Eosinophils % 2.0 (0.00-5.0) % Basophils % 0.4 (0.0-0.4) % Absolute Granulocytes 3.39 (1.4-6.9) x10^3/uL Basophils # 0.02 (0-0.4) x10^3/uL Sodium 136 L (137-145) mmol/L Potassium 3.5 (3.5-5.1) mmol/L Chloride 100 (98-107) mmol/L Carbon Dioxide 31 H (22-30) mmol/L Anion Gap 9.4 (5-15) MEQ/L BUN 10 (9-20) mg/dL Creatinine 0.93 (0.66-1.25) mg/dL Estimated GFR > 60.0 ML/MIN Glucose 91 (74-106) mg/dL Calcium 8.5 (8.4-10.2) mg/dL Total Bilirubin 0.60 (0.2-1.3) mg/dL AST 20 (17-59) U/L ALT 22 (0-50) U/L Alkaline Phosphatase 125 (38-126) U/L Serum Total Protein 7.5 (6.3-8.2) g/dL Albumin 4.2 (3.5-5.0) g/dL Procalcitonin (0.030-0.080) ng/mL Urinalys Dipstick Clnc Urine Color (YELLOW) Urine Appearance (CLEAR) Urine pH (5-6) Ur Specific [place] (1.005-1.025) POC Urine Protein Conf (Negative) Urine Ketones (NEGATIVE) Urine Nitrite (NEGATIVE) Urine Bilirubin (NEGATIVE) Urine Urobilinogen (0-1) mg/dL Urine Leukocytes (NEGATIVE) Urine WBC (Auto) (0-5) /HPF Urine RBC (Auto) (0-2) /HPF U Epithel Cells (Auto) (FEW) /HPF Urine Bacteria (Auto) (NEGATIVE) /HPF Urine RBC (0-5) [place]/ul Urine Mucus (Auto) (NEGATIVE) /HPF Ur Culture Indicated? Urine Glucose (NEGATIVE) mg/dL Influenza Type A Ag (NEGATIVE) Influenza Type B Ag (NEGATIVE) RSV (PCR) (Negative) SARS-CoV-2 (PCR) (NEGATIVE) - Progress Progress: improved, re-examined Air Movement: good Progress Note: 03/07/22 22:51 46 years old is evaluated for flulike symptoms since morning. Patient is not in any distress with oxygen saturation around 97% on room air with no tachypnea or tachycardia. Chest x-ray showed bilateral airspace disease consistent with COVID. Has normal white count, grossly unremarkable chemistries. Offered Paxilovid, went over risk and benefits and he refused. Not confused or altered at all. Nonfocal neuro exam. Patient is a heavy smoker, I would give him an inhaler to take as needed along with short course of steroid. Discussed signs symptoms of worsening needing return to ER which he seems understanding. Stable for discharge. Blood Culture(s) Obtained: Yes Antibiotics given: No Counseled pt/family regarding: lab results, diagnosis, need for follow-up, rad results, smoking cessation - Departure Departure Disposition: Home Clinical Impression: Viral syndrome, COVID-19 virus detected Condition: Stable Critical Care Time: No Referrals: RAFY COLE [Primary Care Provider] - Follow Up with PCP/3 days Instructions: COVID-19 (DC), Viral Syndrome (DC) Additional Instructions: Tylenol/ibuprofen as needed for aches and pains. Drink plenty of fluids. Follow-up with primary care for reevaluation. Use inhaler as needed for having difficulty breathing. Return to ER for difficulty breathing, persistent high- grade fever chills etc. Prescriptions: Albuterol Sulfate [Albuterol Sulfate Hfa] 8.5 gm IH Q6H PRN 7 Days #1 inh PRN Reason: Cough Dexamethasone [Decadron] 6 mg PO DAILY #5 tablet
[2022-03-07 22:51] LABS: Slide Review 1 YES
[2022-03-07] MEDS ORDERED: DECADRON 10MG INJ. IV ONE (22:53)
[2022-03-07] MEDS ORDERED: DECADRON 10MG INJ. ONE (23:18)
[2022-03-07 23:31] VITALS: BP 124/62; PULSE 77; O2SAT 97
--- NOTE | 2022-03-08 06:21 | XRAY ---
Indication: Fever and cough. Comparison: November 18, 2020 Portable chest remains clear. Heart not enlarged. Bony thorax intact again with minimal degenerative changes. No new/acute findings.
== END 2022-03-07 23:37 | disposition home or self-care (01) ==
LOC: ED 20:25
DX: U07.1 COVID-19 (principal); R53.1 Weakness; R53.83 Other fatigue; R20.2 Paresthesia of skin; R05.9 Cough, unspecified; R51.9 Headache, unspecified; M54.2 Cervicalgia; R50.9 Fever, unspecified; E78.5 Hyperlipidemia, unspecified; I10 Essential (primary) hypertension; Z72.0 Tobacco use; Z28.310 Unvaccinated for COVID-19; Z79.52 Long term (current) use of systemic steroids
CPT/HCPCS: 0241U; 36000; 36415; 71045; 80053; 81015; 84145; 85025; 87040; 96374; 99284; J1100; A9270-GY

== ENCOUNTER 2024-01-23 03:05 | Emergency (ER) | payer OTHER ==
[2024-01-23 03:13] VITALS: RESP 18; TEMP 97.5
[2024-01-23] MEDS ORDERED: solu-MEDROL ONE (03:40)
[2024-01-23] MEDS ORDERED: Sterile H2O 10 ml IJ ONE (03:40)
[2024-01-23] MEDS ORDERED: BENADRYL 50 MG/ML ONE (03:40)
[2024-01-23] MEDS ORDERED: Pepcid 20 MG VIAL IV ONE (03:40)
--- NOTE | 2024-01-23 03:40 | ERPHSYRPT ---
- History of Present Illness Source: patient Exam Limitations: no limitations Patient Subjective Stated Complaint: I think I'm having an allergic reaction to my dog again Triage Nursing Assessment: pt ambulated into ER without diff, pt alert and oriented x4. Pt c/o having an allergic reaction to his dogs tonight. Pt has a hx of this. Pt c/o tightness to his arms with numbness to his hand and hives to his back. Pt has an epi pen but didn't use it. Pt denies any sob or difficulty breathing. Physician History: Patient is having allergic reaction to his dog. He is allergic to dogs. He usually just has an exposed. He is not having any anaphylaxis or angioedema. He has some mild swelling in his face but nothing else. The patient has a pruritic generalized rash. Nothing makes symptoms better or worse. He took loratadine about 12 hours ago. Timing/Duration: today Severity: moderate Allergies/Adverse Reactions: lisinopril Allergy (Verified 01/23/24 03:21) nickel Allergy (Verified 01/23/24 03:21) Rash Home Medications: Amlodipine Besylate 2.5 mg PO DAILY 01/23/24 [History] Loratadine 10 mg [Claritin 10 mg] 1 tab PO DAILY 01/23/24 [History] Simvastatin 20Mg [Zocor 20Mg] 1 tab PO DAILY 01/23/24 [History] hydroCHLOROthiazide [Hydrochlorothiazide] 1 tab PO DAILY 01/23/24 [History] Hx Tetanus, Diphtheria Vaccination/Date Given: Yes Hx Influenza Vaccination/Date Given: No Hx Pneumococcal Vaccination/Date Given: No Travel Risk - International Travel Have you traveled outside of the country in past 3 weeks: No - Emerging Infectious Disease Are you exhibiting symptoms associated with any current EIDs: No - Review of Systems Constitutional: No Symptoms Eyes: No Symptoms Musculoskeletal: No Symptoms Neurological: No Symptoms Psychological: No Symptoms All Other Systems: Reviewed and Negative - Past Medical History Pertinent Past Medical History: Yes Neurological History: No Pertinent History ENT History: No Pertinent History Cardiac History: Arrhythmia, High Cholesterol, Hypertension, Other Respiratory History: Sleep Apnea Endocrine Medical History: No Pertinent History Musculoskeletal History: No Pertinent History GI Medical History: No Pertinent History History: No Pertinent History Psycho-Social History: No Pertinent History Male Reproductive Disorders: No Pertinent History Other Medical History: AFIB - Past Surgical History Past Surgical History: Yes Neuro Surgical History: No Pertinent History Cardiac: No Pertinent History Respiratory: No Pertinent History Gastrointestinal: Appendectomy Genitourinary: No Pertinent History Musculoskeletal: No Pertinent History Male Surgical History: No Pertinent History Other Surgical History: APPY Significant Family History: no pertinent family hx - Social History Smoking Status: Current every day smoker How long have you smoked: 37 Exposure to second hand smoke: No Drug Use: none Patient Lives Alone: No - Social Determinants of Health Will the patient participate in the screening: Yes Do you worry about a steady place to live?: No Do you have any problems with any of the following?: No known problems In the past 12 months,have you had to go without utilities?: No Transportation Issues: No Has anyone in your support network made you feel unsafe?: No Have you or anyone in your house had to go without enough: No - Nursing Vital Signs Nursing Vital Signs: Initial Vital Signs Temperature 97.5 F 01/23/24 03:11 Pulse Rate 71 01/23/24 03:11 Respiratory Rate 18 01/23/24 03:11 Blood Pressure 128/92 01/23/24 03:11 O2 Sat by Pulse Oximetry 98 01/23/24 03:11 Pain Scale Pain Intensity 7 - Physical Exam General Appearance: no apparent distress Ears, Nose, Throat Exam: normal ENT inspection Neck Exam: normal inspection Respiratory Exam: normal breath sounds, lungs clear, No respiratory distress Cardiovascular Exam: regular rate/rhythm Gastrointestinal/Abdomen Exam: soft, normal bowel sounds, tenderness Extremity Exam: normal inspection, normal range of motion Neurologic Exam: alert, oriented x 3, cooperative Skin Exam: other (Rash consistent with urticaria) SpO2: 98 Ordered Tests: Medication Summary Discontinued Medications Generic Name Dose Route Start Last Admin Trade Name Freq PRN Reason Stop Dose Admin Methylprednisolone Sodium 0 mg 01/23/24 03:35 01/23/24 03:47 Succinate 125 mg/ Sterile IV 01/23/24 03:36 125 mg Water 2 ml STAT ONE Administration Diphenhydramine HCl 50 mg 01/23/24 03:34 01/23/24 03:47 Diphenhydramine Hcl 50 Mg/Ml Vial IV 01/23/24 03:35 50 mg STAT ONE Administration Diphenhydramine HCl Confirm 01/23/24 03:40 Diphenhydramine Hcl 50 Mg/Ml Vial Administered 01/23/24 03:41 Dose 50 mg .ROUTE .STK-MED ONE Famotidine 20 mg 01/23/24 03:35 01/23/24 03:47 Famotidine 20 Mg/1 Vial IV 01/23/24 03:36 20 mg STAT ONE Administration Famotidine Confirm 01/23/24 03:40 Famotidine 20 Mg/1 Vial Administered 01/23/24 03:41 Dose 20 mg IV .STK-MED ONE Methylprednisolone Sodium Succinate Confirm 01/23/24 03:40 Methylprednis Sod Succ 125 Mg/2 Ml Vial Administered 01/23/24 03:41 Dose 125 mg .ROUTE .STK-MED ONE Sterile Water Confirm 01/23/24 03:40 Water For Injection,Sterile 10 Ml Vial Administered 01/23/24 03:41 Dose 10 ml IJ .STK-MED ONE - Progress Progress: improved Progress Note: 01/23/24 05:11 Patient is stable throughout stay. He got some Benadryl and Solu-Medrol IV here. He improved pretty dramatically. Will send him home with some prednisone he is to continue the Benadryl. Medical Desision Making - Diagnostic Testing Diagnostic test were ordered, analyzed, and reviewed by me: No - Risk of complications Minimal Risk: Minimal risk of morbidity - Departure Departure Disposition: Home Clinical Impression: Allergic reaction Qualifiers: Encounter type: initial encounter Qualified Code(s): T78.40XA - Allergy, unspecified, initial encounter Condition: Stable Critical Care Time: No Referrals: RAFY COLE [Primary Care Provider] - Follow up/PCP as directed Prescriptions: Prednisone 20 mg [Deltasone 20 mg] 20 mg PO TID #12 tablet
[2024-01-23] MEDS: Pepcid 20 MG VIAL IV ONE (03:47)
[2024-01-23] MEDS: BENADRYL 50 MG/ML IV ONE (03:47)
[2024-01-23] MEDS: solu-MEDROL 125 MG, Sterile H2O 10 ml 2 ML IV ONE (03:47)
[2024-01-23 05:05] VITALS: BP 152/72; PULSE 63
[2024-01-23 05:12] VITALS: O2SAT 98
== END 2024-01-23 05:31 | disposition home or self-care (01) ==
LOC: ED 03:05
DX: T78.40XA Allergy, unspecified, initial encounter (principal); R21 Rash and other nonspecific skin eruption; R22.0 Localized swelling, mass and lump, head; E78.5 Hyperlipidemia, unspecified; I10 Essential (primary) hypertension; Z79.52 Long term (current) use of systemic steroids; Z79.899 Other long term (current) drug therapy; Z72.0 Tobacco use
CPT/HCPCS: 36000; 96374; 96375; 99283; J1200; J2919

== ENCOUNTER 2025-02-27 01:41 | Observation (INO) | payer OTHER ==
--- NOTE | 2025-02-27 02:14 | ERPHSYRPT ---
- History of Present Illness Time Seen by Provider: 02/27/25 02:09 Source: patient Exam Limitations: no limitations Patient Subjective Stated Complaint: c/o shortness of breath, headache, chest pressure, and pitting edema Triage Nursing Assessment: patient brought self to ED from work with c/o shortness of breath, chest pressure, pitting edema 3+, and head pressure. pulses 2+ in bilat feet. patient denies pain just states he has some pressure. symptoms started am hour ago, states that his left lateral thigh has had numbness since yesterday. hyptensive, gait steady, afebrile, doesn't appear to be in any distress at this time, 97% on RA, lung sounds clear Physician History: Patient is a 49-year-old male history of hypertension hyperlipidemia obstructive sleep apnea current smoker presents to our ED for evaluation of chest pressure shortness of breath and lower extremity pitting edema. Patient also describes a frontal headache. Patient states symptoms started today proximately 1 hour prior to arrival. Patient's symptoms are constant. Symptoms are mild to moderate in intensity. Shortness of breath worse with exertion. Patient otherwise feels well. He voices no other complaints or concerns at this time. Portions of this note were created with voice recognition technology. There may be grammatical, spelling, punctuation or sound alike errors Timing/Duration: today Activities at Onset: activity Severity of Dyspnea-Max: moderate Severity of Dyspnea-Current: mild Possible Cause: no prior episodes Modifying Factors: Improves With: activity Associated Symptoms: edema, No dizziness, No productive cough Allergies/Adverse Reactions: lisinopril Allergy (Verified 02/27/25 01:44) nickel Allergy (Verified 02/27/25 01:44) Rash Home Medications: Amlodipine Besylate 2.5 mg PO DAILY 01/23/24 [History] Loratadine 10 mg [Claritin 10 mg] 1 tab PO DAILY 01/23/24 [History] Simvastatin 20Mg [Zocor 20Mg] 1 tab PO DAILY 01/23/24 [History] hydroCHLOROthiazide [Hydrochlorothiazide] 1 tab PO DAILY 01/23/24 [History] Cholecalciferol (Vitamin D3) [Vitamin D3] 125 mcg PO DAILY 02/27/25 [History] Hx Tetanus, Diphtheria Vaccination/Date Given: Yes Hx Influenza Vaccination/Date Given: No Hx Pneumococcal Vaccination/Date Given: No Travel Risk - International Travel Have you traveled outside of the country in past 3 weeks: No - Emerging Infectious Disease Are you exhibiting symptoms associated with any current EIDs: Yes Symptoms: Headaches/Body Aches/, Shortness of Breath - Review of Systems All Other Systems: Reviewed and Negative - Past Medical History Pertinent Past Medical History: Yes Neurological History: No Pertinent History ENT History: No Pertinent History Cardiac History: Arrhythmia, High Cholesterol, Hypertension, Other Respiratory History: Sleep Apnea Endocrine Medical History: No Pertinent History Musculoskeletal History: No Pertinent History GI Medical History: No Pertinent History History: No Pertinent History Psycho-Social History: No Pertinent History Male Reproductive Disorders: No Pertinent History Other Medical History: AFIB - Past Surgical History Past Surgical History: Yes Neuro Surgical History: No Pertinent History Cardiac: No Pertinent History Respiratory: No Pertinent History Gastrointestinal: Appendectomy Genitourinary: No Pertinent History Musculoskeletal: No Pertinent History Male Surgical History: No Pertinent History Other Surgical History: APPY Significant Family History: no pertinent family hx - Social History Smoking Status: Current every day smoker How long have you smoked: 37 Exposure to second hand smoke: No Drug Use: none - Social Determinants of Health Will the patient participate in the screening: Yes Do you worry about a steady place to live?: No Do you have any problems with any of the following?: No known problems In the past 12 months,have you had to go without utilities?: No Transportation Issues: No Has anyone in your support network made you feel unsafe?: No Have you or anyone in your house had to go w/o enough food: No - Nursing Vital Signs Nursing Vital Signs: Initial Vital Signs Temperature 97.5 F 02/27/25 01:44 Pulse Rate 79 02/27/25 01:44 Respiratory Rate 22 02/27/25 01:44 Blood Pressure 155/113 02/27/25 01:44 O2 Sat by Pulse Oximetry 96 02/27/25 01:44 Pain Scale Pain Intensity 0 - Physical Exam General Appearance: no apparent distress, alert Eye Exam: PERRL/EOMI Ears, Nose, Throat Exam: hearing grossly normal Neck Exam: normal inspection, supple, full range of motion Respiratory Exam: lungs clear Cardiovascular/Chest Exam: normal heart sounds, regular rate/rhythm Abdominal/Gastrointestinal Exam: soft, No tenderness, No distention, No mass Extremity Exam: non-tender, normal range of motion, normal inspection, no calf tenderness, pedal edema Neurologic Exam: alert, oriented x 3, cooperative, sensor specialist II-XII nml as tested, sensation nml, No motor deficits Skin Exam: normal color, warm, No dry Lymphatic Exam: No adenopathy SpO2 Interpretation: normal SpO2: 97 O2 Delivery: Room Air - Course Nursing assessment & vital signs reviewed: Yes EKG Interpreted by Me: RATE (75), Sinus Rhythm, NORMAL AXIS, NORMAL INTERVALS, NORMAL QRS - Radiology Exams Chest X-ray Interpretation: Interpreted by me (No acute findings) - CT Exams Head CT Interpretation: Tele-radiologist Report (No acute intracranial pathology) Ordered Tests: Active Orders 24 hr Category Date Time Status Equipment Coordinator STAT Care 02/27/25 02:04 Active EKG-ER Only STAT Care 02/27/25 02:03 Active IV Insertion STAT Care 02/27/25 02:03 Active Pulse Oximetry (ED) STAT Care 02/27/25 02:03 Active CHEST 1 VIEW (PORTABLE) Stat Exams 02/27/25 02:04 Taken CTA ABD/PEL W FEM RUNOFF [CT] Stat Exams 02/27/25 05:15 Taken CTA CHEST W AND/OR WO [CT] Stat Exams 02/27/25 05:15 Taken HEAD WITHOUT CONTRAST [CT] Stat Exams 02/27/25 03:27 Completed BLOOD CULTURE Stat Lab 02/27/25 02:25 Received CBC W DIFF Stat Lab 02/27/25 02:10 Completed CMP Stat Lab 02/27/25 02:10 Completed NT PRO BNPII Stat Lab 02/27/25 02:10 Completed TROPONIN Q4H Lab 02/27/25 02:10 Completed TROPONIN Q4H Lab 02/27/25 04:50 Completed TROPONIN Q4H Lab 02/27/25 10:15 Ordered UA W/RFX UR CULTURE Stat Lab 02/27/25 02:36 Completed Transfer Order Routine Transfer 02/27/25 Ordered Medication Summary Discontinued Medications Generic Name Dose Route Start Last Admin Trade Name Freq PRN Reason Stop Dose Admin Acetaminophen 975 mg 02/27/25 04:44 02/27/25 04:55 Acetaminophen 325 Mg Tablet PO 02/27/25 04:45 975 mg STAT ONE Administration Acetaminophen Confirm 02/27/25 04:55 Acetaminophen 325 Mg Tablet Administered 02/27/25 04:56 Dose 975 mg .ROUTE .STK-MED ONE Aspirin 324 mg 02/27/25 04:44 02/27/25 04:56 Aspirin 81 Mg Tab.Chew PO 02/27/25 04:45 324 mg STAT ONE Administration Aspirin Confirm 02/27/25 04:54 Aspirin 81 Mg Tab.Chew Administered 02/27/25 04:55 Dose 324 mg .ROUTE .STK-MED ONE Lab/Rad Data: Laboratory Result Diagrams 02/27/25 02:10 02/27/25 02:10 Laboratory Results 02/27/25 02/27/25 02/27/25 Range/Units 04:50 02:36 02:10 WBC (4.23-9.07) x10^3/uL RBC (4.63-6.08) x10^6/uL Hgb (13.7-17.5) g/dL Hct (40.1-51.0) % MCV (79.0-92.2) fL MCH (25.7-32.2) pg MCHC (32.3-36.5) g/dL RDW (11.6-14.4) % Plt Count (163-337) x10^3/uL MPV (9.4-12.4) fL Gran % (34.0-67.9) % Immature Gran % (Auto) (0.001-0.429) % Nucleat RBC Rel Count (0.00-0.2) % Eos # (Auto) (0.04-0.54) x10^3/uL Immature Gran # (Auto) (0.001-0.031) x10^3u/L Absolute Lymphs (auto) (1.32-3.57) x10^3/uL Absolute Monos (auto) (0.30-0.82) x10^3/uL Absolute Nucleated RBC (0.00-0.012) x10^3u/L Lymphocytes % (21.8-53.1) % Monocytes % (5.3-12.2) % Eosinophils % (0.8-7.0) % Basophils % (0.2-1.2) % Absolute Granulocytes (1.78-5.38) x10^3/uL Basophils # (0.01-0.08) x10^3/uL Sodium (135-145) mmol/L Potassium (3.5-5.1) mmol/L Chloride (98-107) mmol/L Carbon Dioxide (22-30) mmol/L Anion Gap (5-15) MEQ/L BUN (9-20) mg/dL Creatinine (0.66-1.25) mg/dL Estimated GFR ML/MIN Glucose (74-106) mg/dL Calcium (8.4-10.2) mg/dL Total Bilirubin (0.2-1.3) mg/dL AST (17-59) U/L ALT (0-50) U/L Alkaline Phosphatase (38-126) U/L Troponin I < 0.012 < 0.012 (0.000-0.033) ng/mL NT-Pro-B Natriuret Pep < 20.0 (<300) pg/mL Serum Total Protein (6.3-8.2) g/dL Albumin (3.5-5.0) g/dL Urine Color Yellow (Yellow) Urine Appearance Clear (Clear) Urine pH 7.0 (4.6-8.0) Ur Specific [place] 1.025 (1.005-1.030) Urine Protein Negative (Negative) Urine Glucose (UA) Negative (Negative) mg/dL Urine Ketones Negative (Negative) Urine Blood Negative (Negative) Urine Nitrite Negative (Negative) Urine Bilirubin Negative (Negative) Urine Urobilinogen 1.0 A (0.2) mg/dL Ur Leukocyte Esterase Trace A (Negative) U Hyaline Cast (Auto) NONE SEEN (0-2) /LPF Urine Microscopic RBC 6-10 A (0-5) /HPF Urine Microscopic WBC 0-2 (0-5) /HPF Ur Epithelial Cells None Seen (None Seen) /HPF Urine Bacteria None Seen (None Seen) /HPF Urine Culture Reflexed NO (NO) 02/27/25 02/27/25 Range/Units 02:10 02:10 WBC 8.9 (4.23-9.07) x10^3/uL RBC 5.18 (4.63-6.08) x10^6/uL Hgb 15.7 (13.7-17.5) g/dL Hct 46.6 (40.1-51.0) % MCV 90.0 (79.0-92.2) fL MCH 30.3 (25.7-32.2) pg MCHC 33.7 (32.3-36.5) g/dL RDW 13.1 (11.6-14.4) % Plt Count 140 L (163-337) x10^3/uL MPV 11.9 (9.4-12.4) fL Gran % 60.1 (34.0-67.9) % Immature Gran % (Auto) 0.7 H (0.001-0.429) % Nucleat RBC Rel Count 0.0 (0.00-0.2) % Eos # (Auto) 0.21 (0.04-0.54) x10^3/uL Immature Gran # (Auto) 0.06 H (0.001-0.031) x10^3u/L Absolute Lymphs (auto) 2.56 (1.32-3.57) x10^3/uL Absolute Monos (auto) 0.65 (0.30-0.82) x10^3/uL Absolute Nucleated RBC 0.00 (0.00-0.012) x10^3u/L Lymphocytes % 28.7 (21.8-53.1) % Monocytes % 7.3 (5.3-12.2) % Eosinophils % 2.4 (0.8-7.0) % Basophils % 0.8 (0.2-1.2) % Absolute Granulocytes 5.37 (1.78-5.38) x10^3/uL Basophils # 0.07 (0.01-0.08) x10^3/uL Sodium 139 (135-145) mmol/L Potassium 3.8 (3.5-5.1) mmol/L Chloride 101 (98-107) mmol/L Carbon Dioxide 29 (22-30) mmol/L Anion Gap 13.2 (5-15) MEQ/L BUN 16 (9-20) mg/dL Creatinine 1.01 (0.66-1.25) mg/dL Estimated GFR 90.0 ML/MIN Glucose 108 H (74-106) mg/dL Calcium 9.2 (8.4-10.2) mg/dL Total Bilirubin 0.50 (0.2-1.3) mg/dL AST 30 (17-59) U/L ALT 37 (0-50) U/L Alkaline Phosphatase 112 (38-126) U/L Troponin I (0.000-0.033) ng/mL NT-Pro-B Natriuret Pep (<300) pg/mL Serum Total Protein 7.3 (6.3-8.2) g/dL Albumin 4.2 (3.5-5.0) g/dL Urine Color (Yellow) Urine Appearance (Clear) Urine pH (4.6-8.0) Ur Specific [place] (1.005-1.030) Urine Protein (Negative) Urine Glucose (UA) (Negative) mg/dL Urine Ketones (Negative) Urine Blood (Negative) Urine Nitrite (Negative) Urine Bilirubin (Negative) Urine Urobilinogen (0.2) mg/dL Ur Leukocyte Esterase (Negative) U Hyaline Cast (Auto) (0-2) /LPF Urine Microscopic RBC (0-5) /HPF Urine Microscopic WBC (0-5) /HPF Ur Epithelial Cells (None Seen) /HPF Urine Bacteria (None Seen) /HPF Urine Culture Reflexed (NO) - Progress Progress: improved Air Movement: good Progress Note: Heart score 4. 02/27/25 03:21 I spoke to teleneurologist Dr. Anderson at 4:39 AM. He advised hospitalization for MRI with and without contrast. Patient is not a TNK candidate. He also advised Tylenol for his headache and an aspirin. 02/27/25 04:43 Discussed with hospitalist at 6:[address] Faith sent admission to observation. 02/27/25 06:12 Patient is a 49-year-old male history of hypertension hyperlipidemia obstructive sleep apnea current smoker presents to our ED for evaluation of chest pressure shortness of breath and lower extremity pitting edema. Patient adds that he is experiencing a headache and numbness to his left lower extremity. Cardiac workup initiated. Troponin negative x 2. EKG sinus rhythm. No active chest pain at this time. Heart score is a 4. Patient will be admitted for further evaluation/cardiac rule out. Additionally in light of patient's headache CT head was ordered. No acute pathology observed. Teleneurologist observed that patient also has left-sided facial numbness and leg numbness. He advised hospitalization for an MRI as well. Aspirin administered. We decided to order a CTA of the chest and abdomen pelvis. Results pending. However and spite patient will be admitted for further evaluation and treatment. Plan of care discussed with patient. He agrees to admission at [facility] for further evaluation and treatment. Portions of this note were created with voice recognition technology. There may be grammatical, spelling, punctuation or sound alike errors History obtained from patient. Differential diagnosis includes acute coronary syndrome, stroke, aortic dissection, AAA Complexity of problem addressed is moderate acute complicated. No critical care time. Complexity of data reviewed and analyzed is extensive. Test ordered chest reviewed results analyzed and correlated clinically with history and physical exam. Management discussed with neurologist and hospitalist. Risk of complication and or risk of morbidity/mortality of patient management is high. Patient requires hospitalization for further evaluation and treatment. Portions of this note were created with voice recognition technology. There may be grammatical, spelling, punctuation or sound alike errors 02/27/25 06:14 Blood Culture(s) Obtained: Yes Antibiotics given: No Counseled pt/family regarding: lab results, diagnosis, rad results - Departure Departure Disposition: Observation Clinical Impression: Microscopic hematuria, Stroke, Chest pain, SOB (shortness of breath) Condition: Stable Critical Care Time: No Referrals: RAFY COLE [Primary Care Provider, [facility]] - Follow up/PCP as directed
[2025-02-27 02:36] LABS: BASOPHIL % 0.8 % (0.2-1.2); Basophil (Absolute #) 0.07 x10^3/uL (0.01-0.08); Eosinophil (Absolute #) 0.21 x10^3/uL (0.04-0.54); Hematocrit 46.6 % (40.1-51.0); Hemoglobin 15.7 g/dL (13.7-17.5); IMMATURE GRAN # 0.06 x10^3u/L (0.001-0.031); IMMATURE GRAN % 0.7 % (0.001-0.429); Lymphocyte (Absolute #) 2.56 x10^3/uL (1.32-3.57); Mean Corpuscular Hemoglobin 30.3 pg (25.7-32.2); Mean Corpuscular Hgb Concent. 33.7 g/dL (32.3-36.5); Monocyte (Absolute #) 0.65 x10^3/uL (0.30-0.82); NUCLEATED RBC # 0.00 x10^3u/L (0.00-0.012); NUCLEATED RBC % 0.0 % (0.00-0.2); Platelet Count 140 x10^3/uL (163-337); Red Blood Count 5.18 x10^6/uL (4.63-6.08); White Blood Count 8.9 x10^3/uL (4.23-9.07)
[2025-02-27 02:47] LABS: Glucose, Urine Negative (Negative); Protein,Urine Dip Negative (Negative); WBC 0-2 /HPF (0-5)
[2025-02-27 02:51] LABS: Calcium 9.2 mg/dL (8.4-10.2); Carbon Dioxide 29.0 mmol/L (22-30); Creatinine 1 1.01 mg/dL (0.66-1.25); EST GLOMERULAR FILTRATION RATE 90.0 ML/MIN; Glucose 108.0 mg/dL (74-106); Potassium 3.8 mmol/L (3.5-5.1); SGOT/AST 30.0 U/L (17-59); SGPT/ALT 37.0 U/L (0-50); Total Protein 7.3 g/dL (6.3-8.2)
[2025-02-27 03:02] LABS: NT PRO BNPII < 20.0 pg/mL (<300); TROPONIN < 0.012 ng/mL (0.000-0.033)
--- NOTE | 2025-02-27 03:56 | XRAY ---
CLINICAL HISTORY: pain COMPARISON: None. TECHNIQUE: Multiple axial images are obtained from the skull base to the vertex without contrast. CT scan was performed according to ALARA (as low as reasonably achievable). FINDINGS: The brain shows normal morphology, attenuation, and volume for age. No evidence of space occupying lesion, hemorrhage, edema, mass effect, midline shift, extra axial collection, or hydrocephalus is noted. Ventricles, sulci, and basal cisterns are symmetric and normal in size and configuration. The maciel-white matter differentiation is preserved. Visualized paranasal sinuses and mastoid air cells are well aerated. Orbital contents are within normal limits. Bony structures are intact. IMPRESSION: 1. No evidence of acute intracranial abnormality is demonstrated Electronically Signed by: Gurinder Gonzalez MD. (02/27/2025 03:54:27 EDT)
--- NOTE | 2025-02-27 04:53 | PCM.CONS ---
History of Present Illness - Neuro Consultation Date of Consultation Date: 02/27/25 ED Arrival Date & Time: 02/27/25 01:41 Requesting Provider: Parker Hummel Providers: Attending Provider: ED Provider: PARKER HUMMEL Consulting Provider: YOVANI SHAH MD Reason for Consult: Evaluation for stroke vs headache cc:: The requesting physician will be sent a copy of the consult. - Chief Complaint Patient Subjective Stated Complaint: Headache, left leg tingling/numbness STAT Neuro assessment/stroke code: Evaluation for Stroke - History of Present Illness HPI: The patient is a 49M man, with a PMH BRUCE, HLD, atrial fibrillation (not on AC), current everyday smoker, who presents to the [facility] ED with concerns for left leg numbness and tingling, and a pressure-type headache. He reports that sometime on 9 AM, he started to develop a focal area of numbness and tingling in his left leg. 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 He describes it as moderate, in the front of his head. He has not had similar pain before. He describes no throbbing, it is bilateral, there is no associated photophobia, no phonophobia, no nausea. No positional worsening to the headache if he lies down or sits up to his knowledge. No vision changes, no blurry vision, no double vision. At the same time as the headache, he also developed worsening tingling in his left leg which now extended from his hip down the lateral surface of his thigh, and down into his feet. This sensation has persisted so he presented to the ED for further evaluation. No SOB. He did endorse chest pressure along with the head pressure. Known stroke risk factors:: AFib, Dyslipidemia, BRUCE Review of Systems - Review of Systems Review of Systems (Narrative): Pertinent positive and negative findings as per HPI. 12 point Review of Systems done - All other systems negative. - Past Medical History Past Medical History: Yes Neurological History: No Pertinent History ENT History: No Pertinent History Cardiac History: Arrhythmia, High Cholesterol, Hypertension, Other Respiratory History: Sleep Apnea Endocrine Medical History: No Pertinent History Musculoskelatal History: No Pertinent History GI Medical History: No Pertinent History History: No Pertinent History Pyscho-Social History: No Pertinent History Male Reproductive Disorders: No Pertinent History Comment: AFIB - Past Surgical History Past Surgical History: Yes Neuro Surgical History: No Pertinent History Cardiac History: No Pertinent History Respiratory Surgery: No Pertinent History GI Surgical History: Appendectomy Genitourinary Surgical Hx: No Pertinent History Musculskeletal Surgical Hx: No Pertinent History Male Surgical History: No Pertinent History Other Surgical History: APPY Significant Family History: no pertinent family hx - Social History Smoking Status: Current every day smoker How long have you smoked: 37 Exposure to second hand smoke: No Alcohol: Rarely Drug Use: none - Social Determinants of Health Will the patient participate in the screening: Yes Do you worry about a steady place to live?: No Do you have any problems with any of the following?: No known problems In the past 12 months,have you had to go without utilities?: No Have you or anyone in your house had to go without enough: No Transportation Issues: No Has anyone in your support network made you feel unsafe?: No Physical Exam - Vital Signs Vital Signs: Vital Signs - 24 hr 02/27/25 02/27/25 02/27/25 01:44 02:00 02:23 Temperature 97.5 F Pulse Rate 79 73 Respiratory 16 18 Rate Blood Pressure 140/91 Blood Pressure 155/113 [LEFT] O2 Sat by Pulse 97 97 97 Oximetry 02/27/25 02/27/25 02/27/25 03:00 03:30 03:42 Temperature Pulse Rate 59 L 66 63 Respiratory 16 16 17 Rate Blood Pressure 156/110 145/101 182/82 Blood Pressure [LEFT] O2 Sat by Pulse 98 94 L 94 L Oximetry 02/27/25 02/27/25 04:00 04:46 Temperature Pulse Rate 63 Respiratory 17 Rate Blood Pressure 155/76 Blood Pressure [LEFT] O2 Sat by Pulse 97 97 Oximetry - Physical Exam Tele-Neuro Physical Exam (Narrative): NIHSS 1 for left sided decreased sensation to touch in his left face and left leg - Physical Exam General: no acute distress, well developed, well nourished, alert Mental Status: alert, awake and oriented, fund of knowledge, memory at baseline, fluent speech, no dysarthria, cooperative Cranial nerves: Pupils are round and reactive,no anisocoria, extra ocular movements intact, unable to visualize fundi through telemedicine, sensation intact, face is symmetric, hearing intact, trapezii intact strong, tongue midline, + Blink, Visual bourgeois are full to finger counting, no extinction to double Motor: antigravity in all 4 ext, no drift noted, normal bulk, no pronator drift Sens:: intact to touch in all 4 (Decreased sensation to touch in left face (numbness) compared to the right; symmetric sensation to touch in arms; increased paresthesias to touch in left leg), no sensory deficit, positive babinski reflex, negative babinski reflex Movement:: no tremors noted MSR:: unable to assess through telemedicine, no clonus noted. Abnormal Movements: None Gait: deferred - NIHSS Stroke Scale Date Completed: 02/27/25 Time Stroke Scale Completed: : Level of Consciousness: Alert Level of Questions: Answers both correctly LOC Commands: Obeys both correctly Best Gaze: Normal Visual: No visual loss Facial Palsy: Normal Motor Arm-Left: No Drift Motor Arm-Right: No Drift Motor Leg-Left: No Drift Motor Leg Right: No Drift Limb Ataxia: Absent Sensory: Partial Loss Best Language: No apashia Dysarthria: Normal aticulation Extinction and Inattention: No Neglect Stroke Risk Level: 1 Results - Labs Lab/Micro Results: Lab Results-Last 24 Hours 02/27/25 02/27/25 02/27/25 Range/Units 02:10 02:10 02:10 WBC 8.9 (4.23-9.07) x10^3/uL RBC 5.18 (4.63-6.08) x10^6/uL Hgb 15.7 (13.7-17.5) g/dL Hct 46.6 (40.1-51.0) % MCV 90.0 (79.0-92.2) fL MCH 30.3 (25.7-32.2) pg MCHC 33.7 (32.3-36.5) g/dL RDW 13.1 (11.6-14.4) % Plt Count 140 L (163-337) x10^3/uL MPV 11.9 (9.4-12.4) fL Gran % 60.1 (34.0-67.9) % Immature Gran % (Auto) 0.7 H (0.001-0.429) % Nucleat RBC Rel Count 0.0 (0.00-0.2) % Eos # (Auto) 0.21 (0.04-0.54) x10^3/uL Immature Gran # (Auto) 0.06 H (0.001-0.031) x10^3u/L Absolute Lymphs (auto) 2.56 (1.32-3.57) x10^3/uL Absolute Monos (auto) 0.65 (0.30-0.82) x10^3/uL Absolute Nucleated RBC 0.00 (0.00-0.012) x10^3u/L Lymphocytes % 28.7 (21.8-53.1) % Monocytes % 7.3 (5.3-12.2) % Eosinophils % 2.4 (0.8-7.0) % Basophils % 0.8 (0.2-1.2) % Absolute Granulocytes 5.37 (1.78-5.38) x10^3/uL Basophils # 0.07 (0.01-0.08) x10^3/uL Sodium 139 (135-145) mmol/L Potassium 3.8 (3.5-5.1) mmol/L Chloride 101 (98-107) mmol/L Carbon Dioxide 29 (22-30) mmol/L Anion Gap 13.2 (5-15) MEQ/L BUN 16 (9-20) mg/dL Creatinine 1.01 (0.66-1.25) mg/dL Estimated GFR 90.0 ML/MIN Glucose 108 H (74-106) mg/dL Calcium 9.2 (8.4-10.2) mg/dL Total Bilirubin 0.50 (0.2-1.3) mg/dL AST 30 (17-59) U/L ALT 37 (0-50) U/L Alkaline Phosphatase 112 (38-126) U/L Troponin I < 0.012 (0.000-0.033) ng/mL NT-Pro-B Natriuret Pep < 20.0 (<300) pg/mL Serum Total Protein 7.3 (6.3-8.2) g/dL Albumin 4.2 (3.5-5.0) g/dL Urine Color (Yellow) Urine Appearance (Clear) Urine pH (4.6-8.0) Ur Specific [place] (1.005-1.030) Urine Protein (Negative) Urine Glucose (UA) (Negative) mg/dL Urine Ketones (Negative) Urine Blood (Negative) Urine Nitrite (Negative) Urine Bilirubin (Negative) Urine Urobilinogen (0.2) mg/dL Ur Leukocyte Esterase (Negative) U Hyaline Cast (Auto) (0-2) /LPF Urine Microscopic RBC (0-5) /HPF Urine Microscopic WBC (0-5) /HPF Ur Epithelial Cells (None Seen) /HPF Urine Bacteria (None Seen) /HPF Urine Culture Reflexed (NO) 02/27/25 Range/Units 02:36 WBC (4.23-9.07) x10^3/uL RBC (4.63-6.08) x10^6/uL Hgb (13.7-17.5) g/dL Hct (40.1-51.0) % MCV (79.0-92.2) fL MCH (25.7-32.2) pg MCHC (32.3-36.5) g/dL RDW (11.6-14.4) % Plt Count (163-337) x10^3/uL MPV (9.4-12.4) fL Gran % (34.0-67.9) % Immature Gran % (Auto) (0.001-0.429) % Nucleat RBC Rel Count (0.00-0.2) % Eos # (Auto) (0.04-0.54) x10^3/uL Immature Gran # (Auto) (0.001-0.031) x10^3u/L Absolute Lymphs (auto) (1.32-3.57) x10^3/uL Absolute Monos (auto) (0.30-0.82) x10^3/uL Absolute Nucleated RBC (0.00-0.012) x10^3u/L Lymphocytes % (21.8-53.1) % Monocytes % (5.3-12.2) % Eosinophils % (0.8-7.0) % Basophils % (0.2-1.2) % Absolute Granulocytes (1.78-5.38) x10^3/uL Basophils # (0.01-0.08) x10^3/uL Sodium (135-145) mmol/L Potassium (3.5-5.1) mmol/L Chloride (98-107) mmol/L Carbon Dioxide (22-30) mmol/L Anion Gap (5-15) MEQ/L BUN (9-20) mg/dL Creatinine (0.66-1.25) mg/dL Estimated GFR ML/MIN Glucose (74-106) mg/dL Calcium (8.4-10.2) mg/dL Total Bilirubin (0.2-1.3) mg/dL AST (17-59) U/L ALT (0-50) U/L Alkaline Phosphatase (38-126) U/L Troponin I (0.000-0.033) ng/mL NT-Pro-B Natriuret Pep (<300) pg/mL Serum Total Protein (6.3-8.2) g/dL Albumin (3.5-5.0) g/dL Urine Color Yellow (Yellow) Urine Appearance Clear (Clear) Urine pH 7.0 (4.6-8.0) Ur Specific [place] 1.025 (1.005-1.030) Urine Protein Negative (Negative) Urine Glucose (UA) Negative (Negative) mg/dL Urine Ketones Negative (Negative) Urine Blood Negative (Negative) Urine Nitrite Negative (Negative) Urine Bilirubin Negative (Negative) Urine Urobilinogen 1.0 A (0.2) mg/dL Ur Leukocyte Esterase Trace A (Negative) U Hyaline Cast (Auto) NONE SEEN (0-2) /LPF Urine Microscopic RBC 6-10 A (0-5) /HPF Urine Microscopic WBC 0-2 (0-5) /HPF Ur Epithelial Cells None Seen (None Seen) /HPF Urine Bacteria None Seen (None Seen) /HPF Urine Culture Reflexed NO (NO) - Radiology Orders Radiology Orders: Radiology Procedures Category Date Time Status CHEST 1 VIEW (PORTABLE) Stat Exams 02/27/25 02:04 Taken HEAD WITHOUT CONTRAST [CT] Stat Exams 02/27/25 03:27 Completed - CT Impressions CT Head w/o contrast Status: pending, image reviewed by me, report reviewed by me, interpreted by me (No acute pathology noted. No obvious chronic lacunar strokes identified. No acute hemorrhage noted, no subarachnoid hemorrhage noted), discussed w/ radiologist Impressions & Recommendations - Impression Acute Ischemic Stroke: Mr. Genna Auguste has a PMH Afib not on AC, active cigarette smoker, HLD, BRUCE, who is presenting with new acute onset pressure like headache (no prior such symptoms), and left sided facial numbness, and left leg paresthesias. His NIHSS is 1. His LKW is on 02/26/2025 AM, ~ 20 hours prior to ED presentation, so he is not a candidate for TNK. DDx includes acute ischemic stroke (right thalamic vs subcortical), complex migraine. His headache is atypical and new onset and warrants further workup with a contrasted MRI - ED Arrival Time ED Arrival Date & Time: ED Arrival Date and Time 02/27/25 01:41 Last known well time: - NIHSS IV Thrombolysis Standard of Care: IV thrombolysis as a standard of care in acute stroke discussed with PARKER HUMMEL. Risk, benefits, and options of IV thrombolytic therapy for acute ischemic stroke were discussed with the patient/family GENNA AUGUSTE. We discussed that use of IV tenecteplase is in line with national stroke guidelines. We discussed that risks of IV thrombolytic use include intracranial hemorrhage, other fatal bleeding risks, and angioedema. Alternatives of treatment, including not proceeding with thrombolytic therapy were discussed. - Recommendations Recommendations: Mr. Auguste is not a candidate for TNK as he is outside the window LKW: 02/26 AM ~ 20 hours prior Notify Neurology ADE of changes in neurological exam. Work up: -MRI Brain With and Without Contrast to evaluate for acute ischemic stroke vs. evaluate for any brain masses/lesions in setting of new acute onset pressure headache - Fasting Lipid Panel and Hgb A1c -If MRI Brain shows a stroke, then pursue Transthroacic echocardiogram [with bubble study] -EKG + Telemetry- monitor for A-FIB Secondary Stroke Prevention - can start on Aspirin 81mg PO QD now for secondary stroke prevention while pending MRI Brain - if a stroke is identified on MRI Brain, then the patient will eventually need therapeutic anticoagulation with a DOAC or warfarin for secondary prevention given his known afib. The timing of switching to AC depends on the size and extent of the stroke (in setting of small lacunar stroke, approximately 5-7 days) - If not medical contraindication, start high intensity statin. Eg. Atrovastatin 80 mg daily Risk Factor Management -HTN control: allow for permissive hypertension up to SBP 220 until 02/28 due to concern for acute stroke -If diabetic, optimize glucose control: long-term goal HgA1c <7 -HLD control: Long-term goal LDL <70. High intensity statin recommended. Moderate intensity statin in patients > 75 years. -Smoking Alcohol Use Drug use cessation counseling Impression and recommendation were discussed with Dr. PARKER HUMMEL Thank you for allowing us to participate in this patient's care. Please call [facility] with questions, concerns, or change in patient's ne urological status. This consult was performed via secure telemedicine audio/visual platform with Carmina RN assisting at bedside. Patient identity verified and consent obtained. TIQ recieved at 0403 AM Neuro Cart Time: 0415 AM Delays in Patient Encounter: Assessment & Plan - Encounter Encounter: "The entirety of this encounter was performed via Telemedicine using audio and visual "
[2025-02-27] MEDS ORDERED: BABY ASPIRIN 81 MG CHEW ONE (04:54)
[2025-02-27] MEDS ORDERED: TYLENOL 325 MG ONE (04:55)
[2025-02-27] MEDS: TYLENOL 325 MG PO ONE (04:55)
[2025-02-27] MEDS: BABY ASPIRIN 81 MG CHEW PO ONE (04:56)
--- NOTE | 2025-02-27 07:01 | XRAY ---
CLINICAL HISTORY: pain COMPARISON: None. TECHNIQUE: Contrast enhanced thin slice CT angiography scan of the abdominal aorta and bilateral lower extremity was performed with intravenous contrast. Contiguous axial images were obtained. Angiographic images were processed, 3D MIP images were acquired for interpretation. Reformatted coronal and sagittal images were also reviewed. If IV contrast material had not been administered, the likelihood of detecting abnormalities relevant to the patient's condition would have been substantially decreased. CT scan was performed according to ALARA (as low as reasonably achievable). FINDINGS: Abdominal aorta is normal in course, calibre and opacification. Origin of coeliac artery, superior mesenteric artery , bilateral main renal and lumbar arteries are normal with no hemodynamically significant ostial stenosis noted. Bilateral common, external and internal iliac arteries are normal in course, caliber and opacification with no hemodynamically significant stenosis. The gallbladder is collapsed and shows tiny calculus without cholecystitis. RIGHT LOWER LIMB: Common femoral , superficial femoral and profunda femoris arteries are normal in course, calibre and opacification with no hemodynamically significant stenosis seen. Popliteal artery and tibioperoneal arteries are normal in course, calibre and opacification with no hemodynamically significant stenosis. Anterior tibial , posterior tibial and peroneal arteries are normal in course, calibre and opacification. Dorsalis pedis artery is normal in course, calibre and opacification. Good distal run off. LEFT lOWER LIMB: Common femoral , superficial femoral and profunda femoris arteries are normal in course, calibre and opacification with no hemodynamically significant stenosis seen. Popliteal artery and tibioperoneal arteries are normal in course, calibre and opacification with no hemodynamically significant stenosis. Anterior tibial , posterior tibial and peroneal arteries are normal in course, calibre and opacification. Dorsalis pedis artery is normal in course, calibre and opacification. Good distal run off. IMPRESSION: No obvious acute vascular abnormality seen. No dissection/aneurysm/thrombosis. Electronically Signed by: Gurinder Gonzalez MD. (02/27/2025 06:59:14 EDT)
--- NOTE | 2025-02-27 07:14 | XRAY ---
CLINICAL HISTORY: pain COMPARISON: None. TECHNIQUE: Contiguous axial images were obtained from the neck base through the upper abdomen with and without intravenous administration of iodinated contrast material. Angiographic images were processed, 3D MIP images were acquired for interpretation. If IV contrast material had not been administered, the likelihood of detecting abnormalities relevant to the patient's condition would have been substantially decreased. Coronal and sagittal 3-D MIPs were likewise performed and indicated to increase the sensitivity of detectin diffuse clinically relevant pathology. CT scan was performed according to ALARA (as low as reasonably achievable). FINDINGS: Small calcified granulomas are noted in lingula and left lower lobe. Adequate contrast bolus without evidence of pulmonary embolism. The central airways are patent. Rest of lungs are clear. No pleural effusion. The heart, aorta, and pulmonary arteries are of normal size and configuration. There are no appreciable coronary artery and aortic atherosclerotic calcifications. No pericardial effusion is identified. The thyroid is unremarkable. No mediastinal, hilar, or axillary lymphadenopathy is noted. No suspicious lytic or sclerotic osseous lesions are identified. IMPRESSION: 1. No evidence of pulmonary embolism or acute pulmonary disease. 2. Small calcified granulomas are noted in lingula and left lower lobe. Electronically Signed by: Gurinder Gonzalez MD. (02/27/2025 07:12:56 EDT)
--- NOTE | 2025-02-27 09:03 | XRAY ---
Indication: Short of breath. Comparison: March 07, 2022 Lungs inflated and remains clear again with incidental small lingula calcified granuloma. Heart not enlarged. Bony thorax intact again with mild degenerative changes. No new/acute findings.
[2025-02-27] MEDS ORDERED: Zofran 4 MG/2 ML VIAL IV PRN (13:36)
--- NOTE | 2025-02-27 13:46 | PCM.HP ---
<MIRI SAINZ - Last Filed: 02/27/25 13:39> History of Present Illness - Chief Complaint Chief Complaint: STROKE/CP Date: 02/27/25 History of Present Illness: is a 49 year old male with past medical history significant for hyperlipidemia, atrial fibrillation (not on anticoagulation), obstructive sleep apnea on CPAP, and tobacco use who presented to the emergency department on 02/27/25 with acute onset of chest pressure, shortness of breath, frontal head pressure, and bilateral lower extremity edema that began earlier the same morning. The chest discomfort was described as sharp, substernal, and associated with exertional dyspnea. He also noted new left lateral thigh numbness since the day prior, as well as left facial numbness that developed this morning. By the time of my examination, the patient reported resolution of chest pressure and significant improvement in facial numbness, though persistent numbness remained in the left leg. He denied ongoing chest pain, weakness, or visual changes. On arrival, he was hypertensive but otherwise hemodynamically stable. EKG demonstrated sinus rhythm at 75 bpm, with normal axis, intervals, and QRS. Chest radiograph showed no acute cardiopulmonary findings. Non-contrast head CT was without acute abnormality. CTA abdomen/pelvis revealed no vascular abnormality, aneurysm, dissection, or thrombosis. CTA chest was negative for pulmonary embolism or other acute pathology. Laboratory evaluation showed unremarkable CBC and CMP, normal BNP, and two negative troponins. Neurology was consulted and recommended MRI brain with and without contrast for further evaluation of the focal neurologic symptoms, though the patient was unable to tolerate the study. Echocardiogram is pending at this time. - Review of Systems Constitutional: Weakness Eyes: No Symptoms Ears, Nose, & Throat: No Symptoms Respiratory: No Symptoms Cardiac: Edema (BLE +2 pitting ) Abdominal/Gastrointestinal: No Symptoms Genitourinary Symptoms: No Symptoms Musculoskeletal: No Symptoms Skin: No Symptoms Neurological: Headache, Parasthesia (Left lateral thigh ) Endocrine: No Symptoms Hematologic/Lymphatic: No Symptoms Immunological/Allergic: No Symptoms Medications & Allergies Home Medications: Home Medication List Amlodipine Besylate 2.5 mg PO DAILY 01/23/24 [History Confirmed 02/27/25] Loratadine 10 mg [Claritin 10 mg] 10 mg PO DAILY 01/23/24 [History Confirmed 02/27/25] hydroCHLOROthiazide [Hydrochlorothiazide] 12.5 mg PO DAILY 01/23/24 [History Confirmed 02/27/25] Cholecalciferol (Vitamin D3) [Vitamin D3] 125 mcg PO DAILY 02/27/25 [History Confirmed 02/27/25] Fluticasone Propionate [Flonase NASAL] 1 spray INTRANASAL DAILY PRN 02/27/25 [History Confirmed 02/27/25] Apixaban [Eliquis] 5 mg PO BID 30 Days #30 tablet 02/28/25 [Rx] Atorvastatin Calcium 80 mg PO DAILY 30 Days #30 tablet 02/28/25 [Rx] Allergies/Adverse Reactions: Allergies Allergy/AdvReac Type Severity Reaction Status Date / Time lisinopril Allergy Verified 02/27/25 11:51 nickel Allergy Rash Verified 02/27/25 11:51 - Past Medical History Past Medical History: Yes Neurological History: No Pertinent History ENT History: No Pertinent History Cardiac History: Arrhythmia, High Cholesterol, Hypertension, Other Respiratory History: Sleep Apnea Endocrine Medical History: No Pertinent History Musculoskelatal History: No Pertinent History GI Medical History: No Pertinent History History: No Pertinent History Pyscho-Social History: No Pertinent History Male Reproductive Disorders: No Pertinent History Comment: AFIB, [employer]: [facility] - Past Surgical History Past Surgical History: Yes Neuro Surgical History: No Pertinent History Cardiac History: No Pertinent History Respiratory Surgery: No Pertinent History GI Surgical History: Appendectomy Genitourinary Surgical Hx: No Pertinent History Musculskeletal Surgical Hx: No Pertinent History Male Surgical History: No Pertinent History Other Surgical History: APPY Significant Family History: heart disease, cancer, diabetes, hypertension, stroke - Social History Smoking Status: Current every day smoker How long have you smoked: 37 Exposure to second hand smoke: No Alcohol: Rarely Drug Use: none - Social Determinants of Health Will the patient participate in the screening: Yes Do you worry about a steady place to live?: No Do you have any problems with any of the following?: No known problems In the past 12 months,have you had to go without utilities?: No Have you or anyone in your house had to go without enough: No Transportation Issues: No Has anyone in your support network made you feel unsafe?: No Does the patient want assistance with any of the above?: No - Physical Exam Vital Signs: Vital Signs - 24 hr Temp Pulse Resp BP BP Pulse Ox 02/27/25 12:21 97.8 F 69 16 134/77 95 02/27/25 11:49 97.8 F 69 16 134/77 91 L 02/27/25 11:30 57 L 145/79 97 02/27/25 11:00 60 12 136/83 95 02/27/25 10:31 56 L 14 130/83 95 02/27/25 10:06 48 L 9 L 128/77 95 02/27/25 08:30 68 15 128/74 98 02/27/25 08:00 48 L 13 130/93 95 02/27/25 07:31 45 L 13 135/73 96 02/27/25 07:00 50 L 15 145/76 95 02/27/25 06:40 51 L 14 95 02/27/25 06:33 97 02/27/25 06:02 64 17 165/86 99 02/27/25 05:30 73 19 144/98 99 02/27/25 05:00 54 L 15 151/89 95 02/27/25 04:30 64 13 166/89 96 02/27/25 04:00 63 17 155/76 97 02/27/25 03:42 63 17 182/82 94 L 02/27/25 03:30 66 16 145/101 94 L 02/27/25 03:00 59 L 16 156/110 98 02/27/25 02:23 97 02/27/25 02:00 73 18 140/91 97 02/27/25 01:44 97.5 F 79 16 155/113 97 General Appearance: no apparent distress Neurologic Exam: alert, oriented x 3, cooperative Eye Exam: PERRL/EOMI Ears, Nose, Throat Exam: normal ENT inspection Neck Exam: normal inspection Respiratory Exam: normal breath sounds, lungs clear Cardiovascular Exam: regular rate/rhythm, normal heart sounds Gastrointestinal/Abdomen Exam: soft, normal bowel sounds Rectal Exam: deferred Back Exam: normal inspection Extremity Exam: swelling (BLE +2 pitting) Results - Labs Lab/Micro Results: Lab Results-Last 24 Hours 02/27/25 02/27/25 02/27/25 Range/Units 02:10 02:10 02:10 WBC 8.9 (4.23-9.07) x10^3/uL RBC 5.18 (4.63-6.08) x10^6/uL Hgb 15.7 (13.7-17.5) g/dL Hct 46.6 (40.1-51.0) % MCV 90.0 (79.0-92.2) fL MCH 30.3 (25.7-32.2) pg MCHC 33.7 (32.3-36.5) g/dL RDW 13.1 (11.6-14.4) % Plt Count 140 L (163-337) x10^3/uL MPV 11.9 (9.4-12.4) fL Gran % 60.1 (34.0-67.9) % Immature Gran % (Auto) 0.7 H (0.001-0.429) % Nucleat RBC Rel Count 0.0 (0.00-0.2) % Eos # (Auto) 0.21 (0.04-0.54) x10^3/uL Immature Gran # (Auto) 0.06 H (0.001-0.031) x10^3u/L Absolute Lymphs (auto) 2.56 (1.32-3.57) x10^3/uL Absolute Monos (auto) 0.65 (0.30-0.82) x10^3/uL Absolute Nucleated RBC 0.00 (0.00-0.012) x10^3u/L Lymphocytes % 28.7 (21.8-53.1) % Monocytes % 7.3 (5.3-12.2) % Eosinophils % 2.4 (0.8-7.0) % Basophils % 0.8 (0.2-1.2) % Absolute Granulocytes 5.37 (1.78-5.38) x10^3/uL Basophils # 0.07 (0.01-0.08) x10^3/uL Sodium 139 (135-145) mmol/L Potassium 3.8 (3.5-5.1) mmol/L Chloride 101 (98-107) mmol/L Carbon Dioxide 29 (22-30) mmol/L Anion Gap 13.2 (5-15) MEQ/L BUN 16 (9-20) mg/dL Creatinine 1.01 (0.66-1.25) mg/dL Estimated GFR 90.0 ML/MIN Glucose 108 H (74-106) mg/dL Calcium 9.2 (8.4-10.2) mg/dL Total Bilirubin 0.50 (0.2-1.3) mg/dL AST 30 (17-59) U/L ALT 37 (0-50) U/L Alkaline Phosphatase 112 (38-126) U/L Troponin I < 0.012 (0.000-0.033) ng/mL NT-Pro-B Natriuret Pep < 20.0 (<300) pg/mL Serum Total Protein 7.3 (6.3-8.2) g/dL Albumin 4.2 (3.5-5.0) g/dL Urine Color (Yellow) Urine Appearance (Clear) Urine pH (4.6-8.0) Ur Specific [place] (1.005-1.030) Urine Protein (Negative) Urine Glucose (UA) (Negative) mg/dL Urine Ketones (Negative) Urine Blood (Negative) Urine Nitrite (Negative) Urine Bilirubin (Negative) Urine Urobilinogen (0.2) mg/dL Ur Leukocyte Esterase (Negative) U Hyaline Cast (Auto) (0-2) /LPF Urine Microscopic RBC (0-5) /HPF Urine Microscopic WBC (0-5) /HPF Ur Epithelial Cells (None Seen) /HPF Urine Bacteria (None Seen) /HPF Urine Culture Reflexed (NO) 02/27/25 02/27/25 02/27/25 Range/Units 02:36 04:50 10:27 WBC (4.23-9.07) x10^3/uL RBC (4.63-6.08) x10^6/uL Hgb (13.7-17.5) g/dL Hct (40.1-51.0) % MCV (79.0-92.2) fL MCH (25.7-32.2) pg MCHC (32.3-36.5) g/dL RDW (11.6-14.4) % Plt Count (163-337) x10^3/uL MPV (9.4-12.4) fL Gran % (34.0-67.9) % Immature Gran % (Auto) (0.001-0.429) % Nucleat RBC Rel Count (0.00-0.2) % Eos # (Auto) (0.04-0.54) x10^3/uL Immature Gran # (Auto) (0.001-0.031) x10^3u/L Absolute Lymphs (auto) (1.32-3.57) x10^3/uL Absolute Monos (auto) (0.30-0.82) x10^3/uL Absolute Nucleated RBC (0.00-0.012) x10^3u/L Lymphocytes % (21.8-53.1) % Monocytes % (5.3-12.2) % Eosinophils % (0.8-7.0) % Basophils % (0.2-1.2) % Absolute Granulocytes (1.78-5.38) x10^3/uL Basophils # (0.01-0.08) x10^3/uL Sodium (135-145) mmol/L Potassium (3.5-5.1) mmol/L Chloride (98-107) mmol/L Carbon Dioxide (22-30) mmol/L Anion Gap (5-15) MEQ/L BUN (9-20) mg/dL Creatinine (0.66-1.25) mg/dL Estimated GFR ML/MIN Glucose (74-106) mg/dL Calcium (8.4-10.2) mg/dL Total Bilirubin (0.2-1.3) mg/dL AST (17-59) U/L ALT (0-50) U/L Alkaline Phosphatase (38-126) U/L Troponin I < 0.012 < 0.012 (0.000-0.033) ng/mL NT-Pro-B Natriuret Pep (<300) pg/mL Serum Total Protein (6.3-8.2) g/dL Albumin (3.5-5.0) g/dL Urine Color Yellow (Yellow) Urine Appearance Clear (Clear) Urine pH 7.0 (4.6-8.0) Ur Specific [place] 1.025 (1.005-1.030) Urine Protein Negative (Negative) Urine Glucose (UA) Negative (Negative) mg/dL Urine Ketones Negative (Negative) Urine Blood Negative (Negative) Urine Nitrite Negative (Negative) Urine Bilirubin Negative (Negative) Urine Urobilinogen 1.0 A (0.2) mg/dL Ur Leukocyte Esterase Trace A (Negative) U Hyaline Cast (Auto) NONE SEEN (0-2) /LPF Urine Microscopic RBC 6-10 A (0-5) /HPF Urine Microscopic WBC 0-2 (0-5) /HPF Ur Epithelial Cells None Seen (None Seen) /HPF Urine Bacteria None Seen (None Seen) /HPF Urine Culture Reflexed NO (NO) - Radiology Impressions Radiology Exams & Impressions: Radiology Procedures Category Date Time Status CHEST 1 VIEW (PORTABLE) Stat Exams 02/27/25 02:04 Completed CTA ABD/PEL W FEM RUNOFF [CT] Stat Exams 02/27/25 05:15 Completed CTA CHEST W AND/OR WO [CT] Stat Exams 02/27/25 05:15 Completed ECHO W/2D AND DOPPLER [US] Routine Exams 02/27/25 13:36 Ordered HEAD WITHOUT CONTRAST [CT] Stat Exams 02/27/25 03:27 Completed - Other Procedures and Tests Respiratory Therapy 02/27/25 13:36 EKG REPEAT IN AM Respiratory Therapy Consult ONCE Assessment/Plan (1) Chest pain Status: Acute Assessment & Plan: Presentation concerning for acute coronary syndrome, but EKG normal, troponins negative x2, and chest CTA negative for PE or aortic pathology. BNP normal, no acute findings on CXR. Ongoing evaluation with echocardiogram pending Continue telemetry monitoring. Trend troponins if symptoms recur. Echocardiogram Cardiology consult if echo abnormal or if chest pain recurs. Code(s): R07.9 - CHEST PAIN, UNSPECIFIED (2) Left facial numbness Status: Acute Assessment & Plan: Acute onset sensory changes, improved facial symptoms, persistent leg numbness. Head CT negative, CTA head/neck not obtained; MRI brain recommended but patient unable to tolerate. High-risk given AF (not anticoagulated). Could represent TIA vs small stroke vs peripheral nerve compression (thigh). Neurology consulted and following- appreciate recs- agree with plan MRI, echo, ASA/Atorvastatin, lipid/a1c - Patient unable to tolerate MRI- will repeat CT head tomorrow Repeat neuro checks q4h. CTA neck PT/OT consult for persistent leg symptoms. Code(s): R20.0 - ANESTHESIA OF SKIN (3) Left leg numbness Status: Acute Assessment & Plan: -see above Code(s): R20.0 - ANESTHESIA OF SKIN (4) Headache Status: Acute Assessment & Plan: -see above Code(s): R51.9 - HEADACHE, UNSPECIFIED (5) Afib Status: Acute Assessment & Plan: [id number] VASC score of 1 Stroke risk remains high; lack of anticoagulation concerning - Neuro recommending possible start of eliquis pending imaging results Cardiology and neurology input regarding anticoagulation initiation. Discuss DOAC initiation if no contraindications Continue telemetry to monitor for recurrence Code(s): I48.91 - UNSPECIFIED ATRIAL FIBRILLATION (6) HTN (hypertension) Status: Acute Assessment & Plan: Monitor BP trends during hospitalization. Initiate antihypertensive if persistently >140/90 Lifestyle counseling (diet, sodium restriction, exercise, smoking cessation). Code(s): I10 - ESSENTIAL (PRIMARY) HYPERTENSION (7) HLD (hyperlipidemia) Status: Acute Assessment & Plan: Resume statin Code(s): E78.5 - HYPERLIPIDEMIA, UNSPECIFIED (8) BRUCE (obstructive sleep apnea) Status: Acute Assessment & Plan: continue CPAP while IP Code(s): G47.33 - OBSTRUCTIVE SLEEP APNEA (ADULT) (PEDIATRIC) (9) Smoker Status: Acute Assessment & Plan: Current smoker, adds to vascular and pulmonary risk. Smoking cessation counseling. Nicotine patch VTE: SCD PPI: protonix Dispo: 1-2 days Code status: Full code Plan of care time spent > 40 mins Code(s): F17.200 - NICOTINE DEPENDENCE, UNSPECIFIED, UNCOMPLICATED <NICOLE KING - Last Filed: 03/01/25 08:26> History of Present Illness - Chief Complaint History of Present Illness: is a 49 year old male. - Physical Exam Vital Signs: Vital Signs - 24 hr Temp Pulse Resp BP Pulse Ox 02/28/25 11:49 60 02/28/25 11:00 98.2 F 60 16 131/70 94 L Results - Labs Lab/Micro Results: Microbiology 02/27/25 02:20 Blood Culture - Preliminary Blood 02/27/25 02:25 Blood Culture - Preliminary Blood - Radiology Impressions Radiology Exams & Impressions: Radiology Procedures Category Date Time Status CT ANGIOGRAPHY NECK [CT] Routine Exams 02/28/25 07:00 Completed CTA HEAD W AND/OR WO CONTRAST [CT] Routine Exams 02/28/25 07:00 Completed ECHO W/2D AND DOPPLER [US] Routine Exams 02/27/25 13:36 Taken DARIO Encounter - DARIO Encounter Attestation DARIO Encounter Attestation: "GENNA Ragsdale on 02/27/2025 andhavediscussed pertinent aspects of their care with Miri Sainz and agree with the history, physical exam (any modifications based on my personal exam will be noted below), assessment, and plan as outlined in original note. Please see immediately below for my summary of findings and additional assessment and plan along with any meaningful corrections/explanations to the Subjective/Objective portions of the DARIO note will be noted." My portion of the encounter took place via telemedicine. -Patient with history of afib, not on anticoagulation for unclear reasons (possibly low risk?) presenting with left facial and left thigh numbness concerning for stroke. Neuro consulted, admit for stroke work up.
[2025-02-27] MEDS ORDERED: Flonase NASAL NS PRN (13:51)
[2025-02-27] MEDS: NICODERM CQ 14 MG TOP SCH (16:08)
[2025-02-27] MEDS: VITAMIN D PO SCH (16:09)
[2025-02-27] MEDS: NORVASC 5 MG PO SCH (16:10)
[2025-02-27] MEDS: hydroDIURIL 25 MG PO SCH (16:10)
[2025-02-27] MEDS: LIPITOR 40MG PO SCH (16:11)
[2025-02-27] MEDS: CLARITIN 10 MG PO SCH (16:11)
[2025-02-28 05:32] LABS: Hematocrit 46.3 % (40.1-51.0); Hemoglobin 15.4 g/dL (13.7-17.5); Mean Corpuscular Hemoglobin 29.7 pg (25.7-32.2); Mean Corpuscular Hgb Concent. 33.3 g/dL (32.3-36.5); Platelet Count 123 x10^3/uL (163-337); Red Blood Count 5.18 x10^6/uL (4.63-6.08); White Blood Count 7.2 x10^3/uL (4.23-9.07)
[2025-02-28 06:16] LABS: Calcium 8.9 mg/dL (8.4-10.2); Carbon Dioxide 27.0 mmol/L (22-30); Cholesterol 158.0 mg/dL (50-200); Creatinine 1 0.95 mg/dL (0.66-1.25); EST GLOMERULAR FILTRATION RATE 96.9 ML/MIN; Glucose 126.0 mg/dL (74-106); LDL, DIRECT 87.0 mg/dL (30-100); Potassium 3.7 mmol/L (3.5-5.1); SGOT/AST 26.0 U/L (17-59); SGPT/ALT 34.0 U/L (0-50); TRIGLYCERIDE 209.0 mg/dL (30-150); Total Protein 6.9 g/dL (6.3-8.2)
[2025-02-28 07:23] VITALS: RESP 16; O2SAT 94
--- NOTE | 2025-02-28 08:55 | PCM.NOTE ---
Date and Time: 02/28/2549 Subjective Assessment: 49 year old man smoker with DLD, BRUCE, AF not on anticoagulation, presented with headache and leg sensory changes. Unable to tolerate MRI. Objective Exam - Vital Signs Vital Signs: Vital Signs - 24 hr 02/27/25 02/27/25 02/27/25 10:06 10:31 11:00 Temperature Pulse Rate 48 L 56 L 60 Respiratory 9 L 14 12 Rate Blood Pressure 128/77 130/83 136/83 Blood Pressure [LEFT] O2 Sat by Pulse 95 95 95 Oximetry 02/27/25 02/27/25 02/27/25 11:30 11:49 12:21 Temperature 97.8 F 97.8 F Pulse Rate 57 L 69 69 Respiratory 16 16 Rate Blood Pressure 145/79 Blood Pressure 134/77 134/77 [LEFT] O2 Sat by Pulse 97 91 L 95 Oximetry 02/27/25 02/27/25 02/27/25 13:53 15:49 19:00 Temperature 97.6 F 97.5 F Pulse Rate 67 57 L 64 Respiratory 16 16 18 Rate Blood Pressure Blood Pressure 116/66 141/66 [LEFT] O2 Sat by Pulse 96 92 L 96 Oximetry 02/27/25 02/28/25 02/28/25 23:00 03:00 03:44 Temperature 97.2 F 97.2 F 97.8 F Pulse Rate 62 62 60 Respiratory 18 18 18 Rate Blood Pressure Blood Pressure 136/61 136/61 114/56 [LEFT] O2 Sat by Pulse 94 L 94 L 95 Oximetry 02/28/25 07:00 Temperature 98.0 F Pulse Rate 64 Respiratory 16 Rate Blood Pressure Blood Pressure 121/66 [LEFT] O2 Sat by Pulse 94 L Oximetry - Physical Exam Tele-Neuro Physical Exam (Narrative): Constitutional: well-developed, no acute distress Cardiovascular: appears well-perfused, no significant edema Skin: no evident rashes or lesions Respiratory: breathing comfortably on room air Psychiatric: awake, alert, oriented, conversational Eyes: normal ocular alignment, full range of motion Musculoskeletal: muscle strength symmetric Neurologic: no aphasia, face symmetric, no dysarthria, sensation intact - NIHSS Stroke Scale Date Completed: 02/28/25 Time Stroke Scale Completed: 02:00 Objective Data - Labs Lab/Micro Results: Lab Results-Last 24 Hours 02/27/25 02/27/25 02/27/25 Range/Units 02:10 02:10 10:27 WBC (4.23-9.07) x10^3/uL RBC (4.63-6.08) x10^6/uL Hgb (13.7-17.5) g/dL Hct (40.1-51.0) % MCV (79.0-92.2) fL MCH (25.7-32.2) pg MCHC (32.3-36.5) g/dL RDW (11.6-14.4) % Plt Count (163-337) x10^3/uL MPV (9.4-12.4) fL Sodium (135-145) mmol/L Potassium (3.5-5.1) mmol/L Chloride (98-107) mmol/L Carbon Dioxide (22-30) mmol/L Anion Gap (5-15) MEQ/L BUN (9-20) mg/dL Creatinine (0.66-1.25) mg/dL Estimated GFR ML/MIN Glucose (74-106) mg/dL Hemoglobin A1c 5.62 (4.5-6.0) % Calcium (8.4-10.2) mg/dL Total Bilirubin (0.2-1.3) mg/dL AST (17-59) U/L ALT (0-50) U/L Alkaline Phosphatase (38-126) U/L Troponin I < 0.012 (0.000-0.033) ng/mL Serum Total Protein (6.3-8.2) g/dL Albumin (3.5-5.0) g/dL Triglycerides (30-150) mg/dL Cholesterol (50-200) mg/dL LDL Cholesterol (30-100) mg/dL HDL Cholesterol (40-60) mg/dL Heart Disease Risk Ratio TSH 3rd Generation 2.297 (0.470-4.680) mIU/L 02/28/25 02/28/25 Range/Units 04:47 04:47 WBC 7.2 (4.23-9.07) x10^3/uL RBC 5.18 (4.63-6.08) x10^6/uL Hgb 15.4 (13.7-17.5) g/dL Hct 46.3 (40.1-51.0) % MCV 89.4 (79.0-92.2) fL MCH 29.7 (25.7-32.2) pg MCHC 33.3 (32.3-36.5) g/dL RDW 13.2 (11.6-14.4) % Plt Count 123 L (163-337) x10^3/uL MPV 11.8 (9.4-12.4) fL Sodium 140 (135-145) mmol/L Potassium 3.7 (3.5-5.1) mmol/L Chloride 104 (98-107) mmol/L Carbon Dioxide 27 (22-30) mmol/L Anion Gap 12.9 (5-15) MEQ/L BUN 16 (9-20) mg/dL Creatinine 0.95 (0.66-1.25) mg/dL Estimated GFR 96.9 ML/MIN Glucose 126 H (74-106) mg/dL Hemoglobin A1c (4.5-6.0) % Calcium 8.9 (8.4-10.2) mg/dL Total Bilirubin 0.30 (0.2-1.3) mg/dL AST 26 (17-59) U/L ALT 34 (0-50) U/L Alkaline Phosphatase 101 (38-126) U/L Troponin I (0.000-0.033) ng/mL Serum Total Protein 6.9 (6.3-8.2) g/dL Albumin 3.8 (3.5-5.0) g/dL Triglycerides 209 H (30-150) mg/dL Cholesterol 158 (50-200) mg/dL LDL Cholesterol 87 (30-100) mg/dL HDL Cholesterol 32 L (40-60) mg/dL Heart Disease Risk Ratio 5.0 TSH 3rd Generation (0.470-4.680) mIU/L Microbiology 02/27/25 02:20 Blood Culture - Preliminary Blood 02/27/25 02:25 Blood Culture - Preliminary Blood - Radiology Orders Radiology Orders: Radiology Procedures Category Date Time Status CHEST 1 VIEW (PORTABLE) Stat Exams 02/27/25 02:[address] ANGIOGRAPHY NECK [CT] Routine Exams 02/28/25 07:00 Ordered CTA ABD/PEL W FEM RUNOFF [CT] Stat Exams 02/27/25 05:15 Completed CTA CHEST W AND/OR WO [CT] Stat Exams 02/27/25 05:15 Completed CTA HEAD W AND/OR WO CONTRAST [CT] Routine Exams 02/28/25 07:00 Ordered ECHO W/2D AND DOPPLER [US] Routine Exams 02/27/25 13:36 Taken HEAD WITHOUT CONTRAST [CT] Stat Exams 02/27/25 03:27 Completed Assessment & Plan - Encounter Encounter: Describing left leg numbness/paresthesias along the anterior lateral part of his left leg. No back pain. Personally reviewed CTH which does not show any acute pathology. Differential includes acute ischemic stroke vs radiculopathy / peripheral neuropathy vs other. MRI brain would be helpful to see if there are in fact intracerebral findings to explain his symptoms. Suspect a small lesion if present at all based on his symptoms. However, he was unable to tolerate MRI, and management would likely start with anticoagulation for his atrial fibrillation in any case. Recommend repeat CTH to ensure no interval development of hemorrhagic transformation. If negative, based on recent studies, it would be safe & beneficial to begin anticoagulation early eg today, unless otherwise indicated for systemic reasons. Recommendations - serial neurological examinations - telemetry - repeat CTH - if negative for hemorrhagic transformation or large acute/subacute infarct, can start DOAC today - LDL goal <70, high intensity statin first line therapy - A1c goal <7.0 - BP goal normotension - PT/OT - would still benefit from MRI brain if possible - can be arranged outpatient, follow up with PCP The entirety of this encounter was performed via Telemedicine using audio and visual
[2025-02-28] MEDS: ECOTRIN 81 MG PO SCH (09:23)
[2025-02-28] MEDS ORDERED: ZOCOR 20MG PO SCH (10:00)
[2025-02-28 11:11] VITALS: BP 131/70; PULSE 60; TEMP 98.2
--- NOTE | 2025-02-28 14:02 | XRAY ---
CLINICAL HISTORY: numbness to face/leg COMPARISON: No previous studies are available for comparison. TECHNIQUE: CT angiography of the neck was performed following the intravenous administration of 80 cc of Isovue 370 iodinated contrast material. Axial images were obtained from the aortic arch to the vertex. Coronal and sagittal reformatted images were also reviewed. One of the following dose reduction techniques was utilized for this exam: automated exposure control, adjustment of the mA and/or kV according to patient size, or use of iterative reconstruction. One of these 3D techniques was utilized: Maximum Intensity Pixel (MIP), 3D Reconstructed Images, Volume Rendered Images, or Surface Shaded Rendering. Radiation dose: CTDI = 17.64 mGy and DLP = 779.89 mGy-cm. FINDINGS: Carotid Arteries: The common, internal, and external carotid arteries are patent bilaterally, with no evidence of significant stenosis, aneurysm, or dissection. There is no evidence of sizable or significant atherosclerotic plaque causing significant luminal narrowing. A notice is made of bilateral internal carotid artery focal compression by the elongated right styloid process. Vertebral Arteries: The vertebral arteries are patent bilaterally, with no evidence of significant stenosis, aneurysm, or dissection. Thyroid Gland: The thyroid gland is normal in size and appearance, with no focal lesions. Lymph Nodes: There is no evidence of significant lymphadenopathy in the neck. Soft Tissues: Mildly enlarged adenoid that mildly encroaches upon the nasopharyngeal air column. The rest of the soft tissues of the neck are unremarkable, with no evidence of masses or abnormal collections. Additional Findings: Bilateral maxillary sinusitis and retention cysts. A few right upper lobe apical paraseptal emphysematous bullae. IMPRESSION: 1. A focal right internal carotid artery compression by the effect of the elongated right styloid process. 2. No evidence of significant vascular abnormalities, stenosis, or occlusion. 3. Mildly enlarged adenoid. Electronically Signed by: Denny Gonzalez MD. (02/28/2025 14:00:41 EDT)
--- NOTE | 2025-02-28 14:04 | XRAY ---
CLINICAL HISTORY: numbness to face/leg COMPARISON: A comparison is made with the prior CT study of the head without contrast, dated 02/27/2025. TECHNIQUE: A CT scan of the head was performed without contrast, followed by a CT angiography of the head, which was performed following the intravenous administration of 80 cc Isovue 370 iodinated contrast material. Contiguous axial images were obtained from the base of the skull to the vertex. Coronal and sagittal reformatted images were also reviewed. One of the following 3D techniques was utilized: Maximum Intensity Pixel (MIP), 3D Reconstructed Images, Volume Rendered Images, or Surface Shaded Rendering. One of the following dose reduction techniques was utilized for this exam: automated exposure control, adjustment of the mA and/or kV according to patient size, and use of iterative reconstruction. Radiation dose: CTDI: 77.21 mGy and DLP: 1110.34 mGy-cm. FINDINGS: Intracranial arteries: The intracranial arteries, including the anterior cerebral arteries, middle cerebral arteries, posterior cerebral arteries, basilar artery, and vertebral arteries, are all patent without evidence of significant stenosis, aneurysm, or dissection. There is no evidence of vascular malformations. [place]: The [place] is intact, with no anatomical variations or abnormalities noted. All segments are well visualized and normal in appearance. Venous system: The visualized portions of the venous system, including the dural venous sinuses, are patent with no evidence of thrombosis. Brain parenchyma: The brain parenchyma shows no evidence of acute infarct, hemorrhage, or mass effect. The ventricles and sulci are normal in size and configuration. Bones: The bony structures of the skull are intact, without evidence of fracture or destructive lesions. Soft tissues: The visualized soft tissues of the head are unremarkable. Additional findings: Bilateral maxillary sinusitis and retention cysts are present. No other significant findings are noted. IMPRESSION: 1. Normal CT angiography of the head. No evidence of significant vascular abnormalities, stenosis, or occlusion. 2. Normal CT study of the brain with no acute infarction or recent hemorrhage. No newly developed lesions compared to the previous study. If there is a clinical suspicion of stroke, an MRI stroke protocol is recommended. Electronically Signed by: Denny Gonzalez MD. (02/28/2025 14:02:17 EDT)
--- NOTE | 2025-02-28 14:32 | PCM.DS ---
Discharge Summary Date of Admission: 02/27/25 11:43 Date of Discharge: 02/28/25 Admitting Physician: NICOLE KING MD Primary Care Provider: RAFY COLE Allergies Allergies lisinopril Allergy (Verified 02/27/25 11:51) nickel Allergy (Verified 02/27/25 11:51) [facility] Summary - Hospital Course Hospital Course: Mr. Auguste is a 49-year-old male with a history of hyperlipidemia, atrial fibrillation (not previously anticoagulated), obstructive sleep apnea on CPAP, and active tobacco use, who was admitted on 02/27/25 for acute chest pain, shortness of breath, headache, and new neurologic complaints including transient left facial numbness and persistent left thigh numbness. On presentation, he was hypertensive but otherwise stable. His chest pain resolved spontaneously. Initial workup with EKG, serial troponins, chest X-ray, and CTA chest/abdomen/pelvis was negative for ACS, PE, or vascular pathology. Non- contrast head CT showed no acute findings, and CTA head/neck revealed no significant stenosis or occlusion, though a right internal carotid artery impression from an elongated styloid process was noted. Neurology was consulted given focal neurologic complaints and recommended MRI brain, though this was not tolerated. Repeat CT head showed no infarction or hemorrhage. Symptoms improved during hospitalization, with resolution of facial numbness and persistence of mild left thigh paresthesias. Echocardiogram revealed no cardioembolic source. Neurology recommended resuming anticoagulation for atrial fibrillation in the absence of hemorrhagic transformation. 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 He remained at baseline functional status per PT and was deemed safe for discharge with close outpatient Cardiology/neurology follow-up. Patient will need OP MRI brain w/wo contrast per neurology recommendations Open machine as patient was unable to tolerate MRI at our facility. Discharge Note New Medications: Resume Eliquis 5mg BID Atorvastatin 80mg daily Follow Up: Cardiology/Neurology Outpatient testing to order: MRI Brain - Open machine I spent 35 minutes [id number] with the patient on the day of discharge performing discharge exam, discussing hospital stay and discharge instructions with patient and caregivers, preparation of discharge records, prescriptions & referral forms and addressing any questions/concerns the patient had as documented above. - Vitals & Intake/Output Vital Signs: Vital Signs Temperature 98.2 F 02/28/25 11:00 Pulse Rate 60 02/28/25 11:00 Respiratory Rate 16 02/28/25 11:00 Blood Pressure 131/70 02/28/25 11:00 O2 Sat by Pulse Oximetry 94 L 02/28/25 11:00 Intake & Output: Intake & Output 02/26/25 02/27/25 02/28/25 03/01/25 11:59 11:59 11:59 11:59 Intake Total 2019 0 Balance 2019 0 Weight 137.9 kg 134.3 kg - Lab Result Diagrams: 02/28/25 04:47 02/28/25 04:47 Lab Results-Last 24 Hrs: Lab Results-Last 24 Hours 02/27/25 02/27/25 02/28/25 Range/Units 02:10 02:10 04:47 WBC 7.2 (4.23-9.07) x10^3/uL RBC 5.18 (4.63-6.08) x10^6/uL Hgb 15.4 (13.7-17.5) g/dL Hct 46.3 (40.1-51.0) % MCV 89.4 (79.0-92.2) fL MCH 29.7 (25.7-32.2) pg MCHC 33.3 (32.3-36.5) g/dL RDW 13.2 (11.6-14.4) % Plt Count 123 L (163-337) x10^3/uL MPV 11.8 (9.4-12.4) fL Sodium (135-145) mmol/L Potassium (3.5-5.1) mmol/L Chloride (98-107) mmol/L Carbon Dioxide (22-30) mmol/L Anion Gap (5-15) MEQ/L BUN (9-20) mg/dL Creatinine (0.66-1.25) mg/dL Estimated GFR ML/MIN Glucose (74-106) mg/dL Hemoglobin A1c 5.62 (4.5-6.0) % Calcium (8.4-10.2) mg/dL Total Bilirubin (0.2-1.3) mg/dL AST (17-59) U/L ALT (0-50) U/L Alkaline Phosphatase (38-126) U/L Serum Total Protein (6.3-8.2) g/dL Albumin (3.5-5.0) g/dL Triglycerides (30-150) mg/dL Cholesterol (50-200) mg/dL LDL Cholesterol (30-100) mg/dL HDL Cholesterol (40-60) mg/dL Heart Disease Risk Ratio TSH 3rd Generation 2.297 (0.470-4.680) mIU/L 02/28/25 Range/Units 04:47 WBC (4.23-9.07) x10^3/uL RBC (4.63-6.08) x10^6/uL Hgb (13.7-17.5) g/dL Hct (40.1-51.0) % MCV (79.0-92.2) fL MCH (25.7-32.2) pg MCHC (32.3-36.5) g/dL RDW (11.6-14.4) % Plt Count (163-337) x10^3/uL MPV (9.4-12.4) fL Sodium 140 (135-145) mmol/L Potassium 3.7 (3.5-5.1) mmol/L Chloride 104 (98-107) mmol/L Carbon Dioxide 27 (22-30) mmol/L Anion Gap 12.9 (5-15) MEQ/L BUN 16 (9-20) mg/dL Creatinine 0.95 (0.66-1.25) mg/dL Estimated GFR 96.9 ML/MIN Glucose 126 H (74-106) mg/dL Hemoglobin A1c (4.5-6.0) % Calcium 8.9 (8.4-10.2) mg/dL Total Bilirubin 0.30 (0.2-1.3) mg/dL AST 26 (17-59) U/L ALT 34 (0-50) U/L Alkaline Phosphatase 101 (38-126) U/L Serum Total Protein 6.9 (6.3-8.2) g/dL Albumin 3.8 (3.5-5.0) g/dL Triglycerides 209 H (30-150) mg/dL Cholesterol 158 (50-200) mg/dL LDL Cholesterol 87 (30-100) mg/dL HDL Cholesterol 32 L (40-60) mg/dL Heart Disease Risk Ratio 5.0 TSH 3rd Generation (0.470-4.680) mIU/L Micro Results-Entire Visit: Microbiology 02/27/25 02:20 Blood Culture - Preliminary Blood 02/27/25 02:25 Blood Culture - Preliminary Blood - Radiology Exams Ordered Rad Exams-Entire Visit: Radiology Procedures Category Date Time Status CHEST 1 VIEW (PORTABLE) Stat Exams 02/27/25 02:[address] ANGIOGRAPHY NECK [CT] Routine Exams 02/28/25 07:00 Completed CTA ABD/PEL W FEM RUNOFF [CT] Stat Exams 02/27/25 05:15 Completed CTA CHEST W AND/OR WO [CT] Stat Exams 02/27/25 05:15 Completed CTA HEAD W AND/OR WO CONTRAST [CT] Routine Exams 02/28/25 07:00 Completed ECHO W/2D AND DOPPLER [US] Routine Exams 02/27/25 13:36 Taken HEAD WITHOUT CONTRAST [CT] Stat Exams 02/27/25 03:27 Completed - Procedures and Test Procedures and Tests throughout Hospitalization: Therapy Orders & Screens 02/27/25 13:36 PT Eval & Treat (MD Order) ONCE Reason for Eval:: weakness Diagnosis: STROKE EKG REPEAT IN AM Comment: Diagnosis: STROKE Respiratory Therapy Consult ONCE Comment: Reason For Exam: Diagnosis: STROKE Discharge Exam General Appearance: no apparent distress Neurologic Exam: alert, oriented x 3, cooperative Eye Exam: PERRL Ears, Nose, Throat Exam: normal ENT inspection Neck Exam: normal inspection Respiratory Exam: normal breath sounds, lungs clear Cardiovascular Exam: regular rate/rhythm, normal heart sounds Gastrointestinal/Abdomen Exam: soft, normal bowel sounds Male Genitalia Exam: deferred Rectal Exam: deferred Back Exam: normal inspection Extremity Exam: normal inspection Skin Exam: normal color Final Diagnosis/Problem List - Final Discharge Diagnosis/Problem (1) Chest pain Current Visit: Yes Status: Acute Assessment & Plan: Workup excluded acute coronary syndrome, pulmonary embolism, and aortic pathology. Chest discomfort resolved spontaneously, and no recurrence occurred during hospitalization. Echo with cardiac emboli source Continue monitoring for recurrence of chest pain Cardiology OP follow up Code(s): R07.9 - CHEST PAIN, UNSPECIFIED (2) Left facial numbness Current Visit: Yes Status: Acute Assessment & Plan: Likely TIA versus small stroke versus peripheral neuropathy/radiculopathy. CT head negative, CTA head/neck without acute abnormality. MRI recommended but not tolerated inpatient. Facial symptoms resolved; thigh paresthesias persist. Resume anticoagulation with Eliquis 5mg bid/statin for secondary stroke prevention per neurology recommendations Outpatient MRI brain if tolerated. Neurology follow-up recommended within 12 weeks. PT/OT evaluation confirmed no functional deficits; no skilled needs at discharge. Code(s): R20.0 - ANESTHESIA OF SKIN (3) Left leg numbness Current Visit: Yes Status: Acute Assessment & Plan: see above Code(s): R20.0 - ANESTHESIA OF SKIN (4) Headache Current Visit: Yes Status: Acute Assessment & Plan: Presented with frontal pressure in the setting of neurologic complaints; CT head negative. Symptomatically improved. Continue monitoring; use OTC analgesics as needed. Report recurrence or worsening with neurologic deficits. Code(s): R51.9 - HEADACHE, UNSPECIFIED (5) Afib Current Visit: Yes Status: Acute Assessment & Plan: Previously not anticoagulated (recently discontinued), leaving patient at high stroke risk. Now resumed Eliquis 5 mg BID per neurology recommendation. Continue Eliquis indefinitely for stroke prevention. PCP/cardiology follow-up within 12 weeks. Code(s): I48.91 - UNSPECIFIED ATRIAL FIBRILLATION (6) HTN (hypertension) Current Visit: Yes Status: Acute Assessment & Plan: Hypertensive at presentation but improved with monitoring. Remains an ongoing cardiovascular risk factor. Continue blood pressure monitoring at home. Outpatient evaluation for antihypertensive initiation if persistently >140/90. Lifestyle modifications including low-sodium diet, exercise, and smoking cessation counseling. Code(s): I10 - ESSENTIAL (PRIMARY) HYPERTENSION (7) HLD (hyperlipidemia) Current Visit: Yes Status: Acute Assessment & Plan: Continue statin Code(s): E78.5 - HYPERLIPIDEMIA, UNSPECIFIED (8) BRUCE (obstructive sleep apnea) Current Visit: Yes Status: Acute Assessment & Plan: CPAP continue Code(s): G47.33 - OBSTRUCTIVE SLEEP APNEA (ADULT) (PEDIATRIC) (9) Smoker Current Visit: Yes Status: Acute Assessment & Plan: Active smoker; increases vascular and pulmonary risks. Smoking cessation strongly advised. Nicotine replacement therapy initiated inpatient; patient encouraged to continue-declines Outpatient counseling and pharmacotherapy referral offered. Code(s): F17.200 - NICOTINE DEPENDENCE, UNSPECIFIED, UNCOMPLICATED - Discharge Discharge Date: 09/17/25 Disposition: Home, Self-Care Condition: Stable Prescriptions: New Atorvastatin Calcium 80 mg PO DAILY 30 Days #30 tablet Apixaban [Eliquis] 5 mg PO BID 30 Days #30 tablet Continue hydroCHLOROthiazide [Hydrochlorothiazide] 12.5 mg PO DAILY Loratadine 10 mg [Claritin 10 mg] 10 mg PO DAILY Amlodipine Besylate 2.5 mg PO DAILY Cholecalciferol (Vitamin D3) [Vitamin D3] 125 mcg PO DAILY Fluticasone Propionate [Flonase NASAL] 1 spray INTRANASAL DAILY PRN PRN Reason: Allergies Discontinued Simvastatin 20Mg [Zocor 20Mg] 20 mg PO DAILY Additional Instructions: Patient will need appt with PCP for OP MRI, Neurology, and cardiology Follow up with: [facility]OSP[facility] [LOCATION, UNKNOWN] - Call for Appointment
== END 2025-02-28 15:15 | disposition home or self-care (01) ==
LOC: ED 01:41 → MED SURG 11:43
PROVIDERS: ADMIT Internal Medicine; ATTEND Internal Medicine
DX: R07.9 Chest pain, unspecified (principal); R20.0 Anesthesia of skin; R06.02 Shortness of breath; R51.9 Headache, unspecified; I48.91 Unspecified atrial fibrillation; I10 Essential (primary) hypertension; E78.5 Hyperlipidemia, unspecified; G47.33 Obstructive sleep apnea (adult) (pediatric); F17.200 Nicotine dependence, unspecified, uncomplicated; Z79.899 Other long term (current) drug therapy